=== PATIENT | male | born 1955 | race American Indian/Alaskan Native ===

== ENCOUNTER 2020-04-20 17:08 | Inpatient (IN) | payer MEDICARE ==
[2020-04-20] MEDS ORDERED: cloNIDine 0.2 MG TAB PO ONE (21:59)
--- NOTE | 2020-04-20 22:05 | Emergency Department Report ---
ED Dizziness HPI - General Chief Complaint: Dizziness Stated Complaint: CHECK UP Time Seen by Provider: 04/20/20 21:45 Source: patient, family Mode of arrival: Ambulatory Limitations: No Limitations - History of Present Illness Initial Comments: Patient is a 65-year-old male that presents emergency room with complaints of dizziness. Patient states that his dizziness is been going on for 2 days. Patient states he has not seen his primary care. Patient states he is feels lightheaded when he walks around. Patient denies fall. Patient denies near s yncope. Patient states his symptoms are better with rest. Patient states his symptoms are worsening becoming more frequent. Patient states his dizziness is intermittent. Patient states he has a history of high blood pressure but ran out of his medications 1 week ago. Patient's blood pressure in triage was 200/107. Patient denies chest pain and shortness of breath. Patient denies fall and head injury. Patient denies loss of consciousness. Patient denies recent travel. Patient denies recent international travel. Patient denies exposure to the novel coronavirus. Patient denies sick contacts. Patient denies fever and chills. Patient denies cough. Patient denies diarrhea. Patient denies coming in contact with anybody with symptoms of the novel coronavirus. Complaint: dizziness, lightheadedness -: Sudden Timing: sudden onset Description: lightheadedness History of Same: No History of Trauma: No Severity: mild Improves With: remaining still, rest Worsens With: movement, exertion Associated Symptoms: denies: ataxia, chest pain, confusion, cough, diaphoresis, fever/chills, loss of appetite, malaise, rash, seizure, shortness of breath, syncope, weakness - Related Data Allergies Allergy/AdvReac Type Severity Reaction Status Date / Time No Known Allergies Allergy Unverified 04/20/20 22:48 ED Review of Systems ROS: Stated complaint: CHECK UP Other details as noted in HPI Constitutional: denies: chills, fever Eyes: denies: eye pain, eye discharge, vision change ENT: denies: ear pain, throat pain Respiratory: denies: cough, shortness of breath, wheezing Cardiovascular: denies: chest pain, palpitations Endocrine: no symptoms reported Gastrointestinal: denies: abdominal pain, nausea, diarrhea Genitourinary: denies: urgency, dysuria Musculoskeletal: denies: back pain, joint swelling, arthralgia Skin: denies: rash, lesions Neurological: as per HPI. denies: headache, weakness, paresthesias Psychiatric: denies: anxiety, depression Hematological/Lymphatic: denies: easy bleeding, easy bruising ED Past Medical Hx - Past Medical History Previous Medical History?: Yes Hx Hypertension: Yes Hx Liver Disease: No Hx Renal Disease: No - Surgical History Past Surgical History?: No - Family History Family history: no significant - Social History Smoking Status: Never Smoker Substance Use Type: None ED Physical Exam - General Limitations: No Limitations General appearance: alert, in no apparent distress - Head Head exam: Present: atraumatic, normocephalic - Eye Eye exam: Present: normal appearance - ENT ENT exam: Present: mucous membranes moist - Neck Neck exam: Present: normal inspection - Respiratory Respiratory exam: Present: normal lung sounds bilaterally. Absent: respiratory distress - Cardiovascular Cardiovascular Exam: Present: regular rate, normal rhythm. Absent: systolic mur mur, diastolic murmur, rubs, gallop - GI/Abdominal GI/Abdominal exam: Present: soft, normal bowel sounds - Rectal Rectal exam: Present: deferred - Extremities Exam Extremities exam: Present: normal inspection, full ROM. Absent: tenderness, calf tenderness - Back Exam Back exam: Present: normal inspection - Neurological Exam Neurological exam: Present: alert, oriented X3, CN II-XII intact, normal gait. Absent: abnormal gait, motor sensory deficit - Psychiatric Psychiatric exam: Present: normal affect, normal mood - Skin Skin exam: Present: warm, dry, intact, normal color. Absent: rash ED Course Vital Signs 04/20/20 04/20/20 04/20/20 18:15 22:18 22:23 Temperature 100.1 F H 98.9 F Pulse Rate 65 83 67 Respiratory 18 18 Rate Blood Pressure 204/107 247/142 Blood Pressure 247/142 [Left] O2 Sat by Pulse 96 98 Oximetry 04/20/20 04/20/20 04/20/20 22:30 22:45 22:46 Temperature Pulse Rate Respiratory Rate Blood Pressure 232/193 224/115 224/115 Blood Pressure [Left] O2 Sat by Pulse 98 96 96 Oximetry 04/20/20 04/20/20 04/20/20 23:00 23:15 23:29 Temperature Pulse Rate 68 Respiratory Rate Blood Pressure 186/115 157/100 157/100 Blood Pressure [Left] O2 Sat by Pulse 97 96 Oximetry 04/20/20 04/20/20 04/21/20 23:30 23:45 00:00 Temperature Pulse Rate Respiratory Rate Blood Pressure 139/88 151/95 167/104 Blood Pressure [Left] O2 Sat by Pulse 97 98 98 Oximetry 04/21/20 00:15 Temperature Pulse Rate Respiratory Rate Blood Pressure 174/102 Blood Pressure [Left] O2 Sat by Pulse 96 Oximetry - Reevaluation(s) Reevaluation #1: The nurse rechecked the patient's blood pressure and it was 257 systolic. Patient will be given the ordered clonidine. Patient is on the small business director. 04/20/20 22:03 Reevaluation #2: Patient blood pressure still elevated. Patient will be given 5 mg of Norvasc. 04/20/20 23:05 Reevaluation #3: Patient's blood pressure improved. Patient current blood pressure 157/100. Norvasc 5 mg has been held. 04/20/20 23:13 Reevaluation #4: Patient's blood pressure remained stable. Patient is ambulatory without difficulty. Patient states that his symptoms have resolved. Patient states he is asymptomatic. Patient denies chest pain. Patient's lung sounds are clear. Labs are still pending. 04/20/20 23:33 Reevaluation #5: I discussed all results with patient. I discussed plan of care with patient. Patient agrees with plan of care and admission. Patient to be admitted to the hospitalist service. 04/20/20 23:57 - Consultations Consultation #1: Hospitalist consulted for admission. Hospitalist to admit patient. 04/20/20 23:57 ED Medical Decision Making - Lab Data Result diagrams: 04/20/20 22:27 04/20/20 22:27 - EKG Data -: EKG Interpreted by Me EKG shows normal: axis, intervals, QRS complexes, ST-T waves - EKG Data Interpretation: LVH, other (Atrial fibrillation) - Radiology Data Radiology results: report reviewed, image reviewed interpreted by me: Chest x-ray: Cardiomegaly noted, no pneumonia, no pneumothorax, no foreign body. CHEST 1 VIEW INDICATION: dizziness. COMPARISON: None. FINDINGS: Support devices: None. Heart: Moderate cardiomegaly. Lungs/Pleura: No acute air space or interstitial disease. Additional findings: None. IMPRESSION: Moderate cardiomegaly. - Medical Decision Making Patient is a 65-year-old male that presents emergency room with complaints of dizziness. Patient found to have a extremely elevated blood pressure. Patient has been noncompliant with his blood pressure medications. Patient is not sure which medications he is on. Patient given clonidine 0.2 mg and his blood pressure responded well. Patient has labs done and shows new onset renal failure. Patient admitted to the hospitalist service. Patient will require a n ephro consult. - Differential Diagnosis Hypertension, noncompliance, hypertensive emergency, dizziness Critical Care Time: Yes Critical care time in (mins) excluding proc time.: 35 Critical care attestation.: If time is entered above; I have spent that time in minutes in the direct care of this critically ill patient, excluding procedure time. Critical Care Time: 35 minutes ED Disposition Clinical Impression: Dizziness, Malignant hypertension, Metabolic acidosis, Hyperkalemia, Hypertensive emergency without congestive heart failure, Nephrotic syndrome Renal failure Qualifiers: Renal failure chronicity: acute Acute renal failure type: unspecified Qualified Code(s): N17.9 - Acute kidney failure, unspecified Proteinuria Qualifiers: Proteinuria type: unspecified Qualified Code(s): R80.9 - Proteinuria, unspecified Disposition: DC-09 OP ADMIT IP TO THIS HOSP Is pt being admited?: Yes Does the pt Need Aspirin: No Condition: Critical Time of Disposition: 23:56
[2020-04-20 22:51] LABS: Bilirubin,Urine NEG (Negative); Blood,Urine LG (Negative); Color,Urine Yellow (Yellow); Mucus,Urine FEW /HPF; Urobilinogen,Urine < 2.0 mg/dL (<2.0)
[2020-04-20 22:59] LABS: Protein,Urine >500 mg/dL (Negative)
[2020-04-20 23:05] LABS: Hematocrit 40.9 % (35.5-45.6); Hemoglobin 13.9 gm/dl (11.8-15.2); Mean Corpuscular HGB Conc 34 % (32-34); Mean Corpuscular Volume 86 fl (84-94); Platelet Count 154 K/mm3 (140-440); Red Blood Count 4.73 M/mm3 (3.65-5.03); Red Cell Distribution Width 14.7 % (13.2-15.2)
[2020-04-20] MEDS ORDERED: amLODIPine 5 MG TAB PO ONE (23:05)
[2020-04-20 23:14] LABS: Basophils % (Auto) 0.5 % (0.0-1.8); Lymphocytes # (Auto) 0.7 K/mm3 (1.2-5.4); Lymphocytes % (Auto) 12.7 % (13.4-35.0); Monocytes # (Auto) 0.7 K/mm3 (0.0-0.8)
[2020-04-20 23:30] LABS: Albumin 4.1 g/dL (3.9-5)
[2020-04-21] MEDS ORDERED: SODIUM CHLORIDE 0.9% 1000 ML 1,000 ML IV ONE (00:09)
--- NOTE | 2020-04-21 00:31 | XRay Report ---
CHEST 1 VIEW INDICATION: dizziness. COMPARISON: None. FINDINGS: Support devices: None. Heart: Moderate cardiomegaly. Lungs/Pleura: No acute air space or interstitial disease. Additional findings: None. IMPRESSION: Moderate cardiomegaly. Signer Name: Apolinar Mccallum MD Signed: 04/21/2020 12:27 AM Workstation Name: [id number]
[2020-04-21] MEDS ORDERED: SODIUM CHLORIDE 0.9% 1000 ML 1,000 ML ONE (01:17)
[2020-04-21] MEDS ORDERED: ONDANSETRON 4 MG/2 ML INJ IV PRN (01:54)
[2020-04-21] MEDS ORDERED: ACETAMINOPHEN 325 MG TAB PO PRN (01:54)
[2020-04-21] MEDS ORDERED: MORPHINE 2 MG/1 ML INJ IV PRN (01:54)
[2020-04-21] MEDS ORDERED: MAGNESIUM HYDROXIDE (MOM) ORAL LIQD UDC PO PRN (01:54)
[2020-04-21] MEDS ORDERED: SODIUM CHLORIDE 0.9% 1000 ML 1,000 ML IV SCH (02:00)
--- NOTE | 2020-04-21 02:08 | History and Physical Report ---
History of Present Illness Date of examination: 04/21/20 Date of admission: 04/21/20 00:46 Chief complaint: Dizziness History of present illness: Patient is a 65-year-old male with significant past medical history of hypertension presenting to the emergency room today complaining of dizziness. Dizziness is said to have been ongoing for about 2 days. He gets lightheaded whenever he walks around. Dizziness is said to be intermittent. He admits that has not been quite compliant with his medication as he ran out of his medication about a week ago. Blood pressure on arrival was in the 200s systolic and low 100s diastolic. He was given some p.o. clonidine with improvement in blood pressure. He denies any chest pain or shortness of breath, no nausea or vomiting, no abdominal pain. Patient denies denies any fever or chills, no sick contacts and no recent t ravel. He denies coming in contact with anyone with COVID-19. Past History Past Medical History: hypertension Past Surgical History: No surgical history Social history: no significant social history Family history: no significant family history Medications and Allergies Allergies Allergy/AdvReac Type Severity Reaction Status Date / Time No Known Allergies Allergy Unverified 04/20/20 22:48 Active Meds: Active Medications Acetaminophen (Tylenol) 650 mg PO Q4H PRN PRN Reason: Pain MILD(1-3)/Fever >100.5/NUNO Heparin Sodium (Porcine) (Heparin) 5,000 unit SUB-Q Q8HR JEAN MARIE Sodium Chloride (Nacl 0.9% 1000 Ml) 1,000 mls @ 75 mls/hr IV DIRECT JEAN MARIE Magnesium Hydroxide (Milk Of Magnesia) 30 ml PO Q4H PRN PRN Reason: Constipation Morphine Sulfate (Morphine) 2 mg IV Q4H PRN PRN Reason: Pain, Moderate (4-6) Ondansetron HCl (Zofran) 4 mg IV Q8H PRN PRN Reason: Nausea And Vomiting Sodium Chloride (Sodium Chloride Flush Syringe 10 Ml) 10 ml IV BID JEAN MARIE Sodium Chloride (Sodium Chloride Flush Syringe 10 Ml) 10 ml IV PRN PRN PRN Reason: LINE FLUSH Review of Systems Constitutional: no fever, no chills Ears, nose, mouth and throat: no nasal congestion, no sore throat Cardiovascular: no chest pain, no palpitations Respiratory: no cough, no shortness of breath Gastrointestinal: no abdominal pain, no nausea, no vomiting, no diarrhea Genitourinary Male: no dysuria, no hematuria, no nocturia Musculoskeletal: no neck stiffness, no low back pain Integumentary: no rash, no pruritis Neurological: no headaches, no confusion Psychiatric: no anxiety, no depression Exam - Constitutional Vitals: Temp Pulse Resp BP Pulse Ox 98.9 F 68 18 174/102 96 04/20/20 22:18 04/20/20 23:29 04/20/20 22:18 04/21/20 00:15 04/21/20 00:15 General appearance: Present: no acute distress, well-nourished - EENT Eyes: Present: PERRL, EOM intact. Absent: scleral icterus ENT: hearing intact, clear oral mucosa, dentition normal - Neck Neck: Present: supple, normal ROM - Respiratory Respiratory effort: normal Respiratory: bilateral: CTA - Cardiovascular Rhythm: regular Heart Sounds: Present: S1 & S2. Absent: gallop, systolic murmur, diastolic murmur, rub - Extremities Extremities: no ischemia, pulses intact, pulses symmetrical, No edema, Full ROM Peripheral Pulses: within normal limits - Abdominal General gastrointestinal: Present: soft, non-tender, normal bowel sounds. Absent: mass - Integumentary Integumentary: Present: clear, warm, dry. Absent: rash - Musculoskeletal Musculoskeletal: strength equal bilaterally - Psychiatric Psychiatric: appropriate mood/affect, intact judgment & insight, memory intact, cooperative - Neurologic Neurologic: CNII-XII intact, no focal deficits, moves all extremities Results - Labs CBC & Chem 7: 04/20/20 22:27 04/20/20 22:27 Labs: Abnormal lab results 04/20/20 04/20/20 Range/Units 22:27 22:27 Lymph % (Auto) 12.7 L (13.4-35.0) % [place] % (Auto) 13.0 H (0.0-7.3) % Lymph # 0.7 L (1.2-5.4) K/mm3 Seg Neutrophils % 73.8 H (40.0-70.0) % Sodium 133 L (137-145) mmol/L Potassium 5.1 H (3.6-5.0) mmol/L Chloride 95.0 L (98-107) mmol/L Carbon Dioxide 14 L (22-30) mmol/L BUN 75 H (9-20) mg/dL Creatinine 5.0 H (0.8-1.3) mg/dL AST 82 H (5-40) units/L ALT 59 H (7-56) units/L Total Protein 8.8 H (6.3-8.2) g/dL Assessment and Plan - Patient Problems (1) Dizziness Current Visit: Yes Status: Acute Plan to address problem: Resolved. Possibly secondary to the elevated blood pressure. (2) Malignant hypertension Current Visit: Yes Status: Acute Plan to address problem: Secondary to noncompliance. We will resume routine home medications and monitor vital signs closely. (3) Renal failure Current Visit: Yes Status: Acute Qualifiers: Renal failure chronicity: acute Acute renal failure type: unspecified Qualified Code(s): N17.9 - Acute kidney failure, unspecified Plan to address problem: Possibly secondary to longstanding hypertension versus volume depletion. Patient given some IV fluid in the emergency room. Will place consult to nephrology for evaluation and recommendation. (4) DVT prophylaxis Current Visit: Yes Status: Acute Plan to address problem: Patient placed on subcutaneous heparin. (5) Full code status Current Visit: Yes Status: Acute
[2020-04-21] MEDS ORDERED: cloNIDine 0.1 MG TAB PO ONE (02:18)
[2020-04-21] MEDS ORDERED: cloNIDine 0.1 MG TAB ONE (02:30)
[2020-04-21] MEDS: HEPARIN 5,000 UNIT/1 ML VIAL SUB-Q SCH ×3 (06:35→21:39)
[2020-04-21 07:16] LABS: Alanine Aminotransferase 50 units/L (7-56); Albumin 3.6 g/dL (3.9-5)
[2020-04-21 08:11] LABS: Bilirubin,Direct < 0.2 mg/dL (0-0.2)
[2020-04-21] MEDS: NIFEdipine XL 60 MG TAB PO SCH ×2 (10:34→21:39)
--- NOTE | 2020-04-21 11:21 | Progress Note ---
Assessment and Plan Assessment and plan: Dizziness Current Visit: Yes Status: Acute Plan to address problem: Resolved. Possibly secondary to the elevated blood pressure. Malignant hypertension Start Procardia 60 mg twice daily Acute on chronic renal failure Possibly secondary to longstanding hypertension versus volume depletion. Patient given some IV fluid in the emergency room. Will place consult to nephrology for evaluation and recommendation. Check renal ultrasound DVT prophylaxis Patient placed on subcutaneous heparin. Full code status History Interval history: Patient denies any chest pain or shortness of breath. Patient states his dizziness has resolved. Hospitalist Physical - Constitutional Vitals: Temp Pulse Resp BP Pulse Ox 98.1 F 77 20 156/103 97 04/21/20 03:15 04/21/20 10:28 04/21/20 03:15 04/21/20 03:15 04/21/20 03:15 General appearance: Present: no acute distress, well-nourished - EENT Eyes: Present: PERRL, EOM intact ENT: hearing intact, clear oral mucosa, dentition normal - Neck Neck: Present: supple, normal ROM - Respiratory Respiratory effort: normal Respiratory: bilateral: CTA - Cardiovascular Rhythm: regular Heart Sounds: Present: S1 & S2. Absent: gallop, rub - Extremities Extremities: no ischemia, No edema, Full ROM - Abdominal General gastrointestinal: soft, non-tender, non-distended, normal bowel sounds - Integumentary Integumentary: Present: clear, warm, dry - Neurologic Neurologic: CNII-XII intact, moves all extremities Results - Labs CBC & Chem 7: 04/20/20 22:27 04/20/20 22:27 Labs: Laboratory Last Values WBC 5.5 K/mm3 (4.5-11.0) 04/20/20 22:27 RBC 4.73 M/mm3 (3.65-5.03) 04/20/20 22:27 Hgb 13.9 gm/dl (11.8-15.2) 04/20/20 22: Hct 40.9 % (35.5-45.6) 04/20/20 22:27 MCV 86 fl (84-94) 04/20/20 22:27 MCH 29 pg (28-32) 04/20/20 22: MCHC 34 % (32-34) 04/20/20 22: RDW 14.7 % (13.2-15.2) 04/20/20 22: Plt Count 154 K/mm3 (140-440) 04/20/20 22: Lymph % (Auto) 12.7 % (13.4-35.0) L 04/20/20 22:27 Kay % (Auto) 13.0 % (0.0-7.3) H 04/20/20 22: Eos % (Auto) 0.0 % (0.0-4.3) 04/20/20: Baso % (Auto) 0.5 % (0.0-1.8) 04/20/20: Lymph # 0.7 K/mm3 (1.2-5.4) L 04/20/20 22: Kay # 0.7 K/mm3 (0.0-0.8) 04/20/20 22: Eos # 0.0 K/mm3 (0.0-0.4) 04/20/20: Baso # 0.0 K/mm3 (0.0-0.1) 04/20/20 22: Seg Neutrophils % 73.8 % (40.0-70.0) H 04/20/20 22: Seg Neutrophils # 4.0 K/mm3 (1.8-7.7) 04/20/20 22: Sodium 133 mmol/L (137-145) L 04/20/20 22: Potassium 5.1 mmol/L (3.6-5.0) H 04/20/20 22: Chloride 95.0 mmol/L (98-107) L 04/20/20: Carbon Dioxide 14 mmol/L (22-30) L 04/20/20 22: Anion Gap 29 mmol/L 04/20/20 22: BUN 75 mg/dL (9-20) H 04/20/20: Creatinine 5.0 mg/dL (0.8-1.3) H 04/20/20: Estimated GFR 14 ml/min 04/20/20: BUN/Creatinine Ratio 15 % 04/20/20: Glucose 99 mg/dL (75-100) 04/20/20: Calcium 10.0 mg/dL (8.4-10.2) 09/03/20 22:27 Total Bilirubin 0.50 mg/dL (0.1-1.2) 04/21/20 05:01 Direct Bilirubin < 0.2 mg/dL (0-0.2) 04/21/20 05:01 AST 68 units/L (5-40) H 04/21/20 05:01 ALT 50 units/L (7-56) 04/21/20 05:01 Alkaline Phosphatase 46 units/L (35-129) 04/21/20 05:01 Total Protein 7.2 g/dL (6.3-8.2) 04/21/20 05:01 Albumin 3.6 g/dL (3.9-5) L 04/21/20 05:01 Albumin/Globulin Ratio 1.0 % 04/21/20 05:01 Urine Color Yellow (Yellow) 04/20/20 Unknown Urine Turbidity Slightly-cloudy (Clear) 04/20/20 Unknown Urine pH 5.0 (5.0-7.0) 04/20/20 Unknown Ur Specific [place] 1.014 (1.003-1.030) 04/20/20 Unknown Urine Protein >500 mg/dL (Negative) 04/20/20 Unknown Urine Glucose (UA) Neg mg/dL (Negative) 04/20/20 Unknown Urine Ketones Neg mg/dL (Negative) 04/20/20 Unknown Urine Blood Lg (Negative) 04/20/20 Unknown Urine Nitrite Neg (Negative) 04/20/20 Unknown Urine Bilirubin Neg (Negative) 04/20/20 Unknown Urine Urobilinogen < 2.0 mg/dL (<2.0) 04/20/20 Unknown Ur Leukocyte Esterase Neg (Negative) 04/20/20 Unknown Urine WBC (Auto) 2.0 /HPF (0.0-6.0) 04/20/20 Unknown Urine RBC (Auto) 2.0 /HPF (0.0-6.0) 04/20/20 Unknown U Epithel Cells (Auto) < 1.0 /HPF (0-13.0) 04/20/20 Unknown Urine Mucus Few /HPF 04/20/20 Unknown Urine Yeast (Budding) 1+ /HPF 04/20/20 Unknown [place]/IV: Voiding Method Toilet IV Catheter Type [Right Hand] INT / Saline Lock Active Medications - Current Medications Current Medications: Generic Name Dose Route Start Last Admin Trade Name Freq PRN Reason Stop Dose Admin Acetaminophen 650 mg 04/21/20 01:54 Tylenol PO Q4H PRN Pain MILD(1-3)/Fever >100.5/NUNO Guaifenesin 10 ml 04/21/20 03:25 Guaifenesin Dm Syrup PO Q6H PRN Cough Heparin Sodium (Porcine) 5,000 unit 04/21/20 06:00 04/21/20 06:35 Heparin SUB-Q 5,000 unit Q8HR JEAN MARIE Administration Magnesium Hydroxide 30 ml 04/21/20 01:54 Milk Of Magnesia PO Q4H PRN Constipation Morphine Sulfate 2 mg 04/21/20 01:54 Morphine IV Q4H PRN Pain, Moderate (4-6) Nifedipine 60 mg 04/21/20 10:00 04/21/20 10:34 Procardia Xl PO 60 mg Q12HR JEAN MARIE Administration Ondansetron HCl 4 mg 04/21/20 01:54 Zofran IV Q8H PRN Nausea And Vomiting Sodium Chloride 10 ml 04/21/20 10:00 04/21/20 09:48 Sodium Chloride Flush Syringe 10 Ml IV 10 ml BID JEAN MARIE Administration Sodium Chloride 10 ml 04/21/20 01:54 Sodium Chloride Flush Syringe 10 Ml IV PRN PRN LINE FLUSH
--- NOTE | 2020-04-21 11:46 | Consultation ---
History of Present Illness - Reason for Consult Consult date: 04/21/20 acute renal failure Requesting physician: PATSY VYAS - History of Present Illness Patient is a 65-year-old male that presents emergency room with complaints of dizziness. Patient states that his dizziness is been going on for 2 days. Patient states he has not seen his primary care. Patient states he is feels lightheaded when he walks around. Patient denies fall. Patient denies near s yncope. Patient states his symptoms are better with rest. Patient states his symptoms are worsening becoming more frequent. Patient states his dizziness is intermittent. Patient states he has a history of high blood pressure but ran out of his medications 1 week ago. Patient's blood pressure in triage was 200/107. Patient denies chest pain and shortness of breath. Patient denies fall and head injury. Patient denies loss of consciousness. Patient denies recent travel. Patient denies recent international travel. Patient denies exposure to the novel coronavirus. Patient denies sick contacts. Patient denies fever and chills. Patient denies cough. Patient denies diarrhea. Patient denies coming in contact with anybody with symptoms of the novel coronavirus. Patient denies any previous knowledge of renal dysfunction. Patient states that he used to follow-up with Dr. Colon as an outpatient. However last time he had seen him was several years ago. He had lost his insurance in the interim and Dr. Colon did not take his new insurance. 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 He does admit to ta jerald some nonsteroidals but intake does not seem to be significant. No history of gross hematuria or frequent urinary tract infection Past History Past Medical History: hypertension Past Surgical History: No surgical history Social history: no significant social history Family history: no significant family history Medications and Allergies Allergies Allergy/AdvReac Type Severity Reaction Status Date / Time No Known Allergies Allergy Unverified 04/20/20 22:48 Active Meds: Active Medications Acetaminophen (Tylenol) 650 mg PO Q4H PRN PRN Reason: Pain MILD(1-3)/Fever >100.5/NUNO Guaifenesin (Guaifenesin Dm Syrup) 10 ml PO Q6H PRN PRN Reason: Cough Heparin Sodium (Porcine) (Heparin) 5,000 unit SUB-Q Q8HR [facility] Last Admin: 04/21/20 06:35 Dose: 5,000 unit Documented by: Magnesium Hydroxide (Milk Of Magnesia) 30 ml PO Q4H PRN PRN Reason: Constipation Morphine Sulfate (Morphine) 2 mg IV Q4H PRN PRN Reason: Pain, Moderate (4-6) Nifedipine (Procardia Xl) 60 mg PO Q12HR [facility] Last Admin: 04/21/20 10:34 Dose: 60 mg Documented by: Ondansetron HCl (Zofran) 4 mg IV Q8H PRN PRN Reason: Nausea And Vomiting Sodium Chloride (Sodium Chloride Flush Syringe 10 Ml) 10 ml IV BID [facility] Last Admin: 04/21/20 09:48 Dose: 10 ml Documented by: Sodium Chloride (Sodium Chloride Flush Syringe 10 Ml) 10 ml IV PRN PRN PRN Reason: LINE FLUSH Review of Systems All systems: negative (Negative except as noted above) Exam - Vital Signs Vital signs: Vital Signs Temp Pulse Resp BP Pulse Ox 100.1 F H 65 18 204/107 96 04/20/20 18:15 04/20/20 18:15 04/20/20 18:15 04/20/20 18:15 04/20/20 18:15 - General Appearance General appearance: well-developed, well-nourished, appears stated age EENT: PERRL, mucous membranes moist Neck: Present: neck supple, trachea midline. Absent: JVD/HJR, Masses Respiratory: Clear to Ascultation Heart: regular, normal heart rate, S1S2, no murmurs Gastrointestinal: Present: normal. Absent: tenderness, distended, masses, guarding Integumentary: no rash, warm and dry Neurologic: no focal deficit Results - Lab Results 04/20/20 22:27 04/20/20 22:27 Most recent lab results Calcium 10.0 mg/dL (8.4-10.2) 04/20/20 22:27 Assessment and Plan Impression * Renal failure. Most likely acute on chronic * Uncontrolled hypertension * Metabolic acidosis Recommendations * Etiology of his renal dysfunction unclear. His baseline renal function is also not known. * Suspect some degree of underlying chronic kidney disease * Check a UA as well as a fractional excretion of sodium * Check renal ultrasound to assess kidney size and echogenicity * Check vasculitis work-up * Add bicarbonate to the IV fluid * Avoid nephrotoxins * Monitor fluid status and electrolytes closely. Patient is currently nonoliguric * No urgent indication for hemodialysis at this time * Thank you very much for the consultation. Shall follow along with you
[2020-04-21] MEDS ORDERED: SODIUM CHLORIDE 0.45% 1000 ML 1,000 ML with SODIUM BICARBONATE 75 MEQ IV SCH (12:00)
[2020-04-21 15:10] LABS: Hepatitis B Surface Antigen Non-Reactive (Negative); Hepatitis C Virus Antibody Non-Reactive (NonReactive)
[2020-04-21] MEDS: guaiFENesin DM 200/20 MG ORAL LIQD 10 ML PO PRN (21:39)
[2020-04-21 22:31] LABS: Bilirubin,Urine NEG (Negative); Blood,Urine MOD (Negative); Color,Urine Yellow (Yellow); Urobilinogen,Urine < 2.0 mg/dL (<2.0)
[2020-04-21 22:34] LABS: Fractional Sodium Excretion 0.2
[2020-04-22] MEDS: SODIUM BICARBONATE 75 MEQ in SODIUM CHLORIDE 0.45% 1000 ML 1,000 ML IV SCH ×2 (03:40→19:15)
[2020-04-22] MEDS: HEPARIN 5,000 UNIT/1 ML VIAL SUB-Q SCH ×3 (05:52→23:02)
[2020-04-22 06:20] LABS: Basophils % (Auto) 0.3 % (0.0-1.8); Eosinophils % (Auto) 0.1 % (0.0-4.3); Hematocrit 33.9 % (35.5-45.6); Hemoglobin 11.7 gm/dl (11.8-15.2); Lymphocytes # (Auto) 0.5 K/mm3 (1.2-5.4); Lymphocytes % (Auto) 11.4 % (13.4-35.0); Mean Corpuscular HGB Conc 35 % (32-34); Mean Corpuscular Volume 84 fl (84-94); Monocytes # (Auto) 0.5 K/mm3 (0.0-0.8); Platelet Count 161 K/mm3 (140-440); Red Blood Count 4.01 M/mm3 (3.65-5.03); Red Cell Distribution Width 14.8 % (13.2-15.2)
[2020-04-22 06:31] LABS: INR 1.16 (0.87-1.13)
[2020-04-22 06:34] LABS: Calcium 9.3 mg/dL (8.4-10.2)
[2020-04-22] MEDS: NIFEdipine XL 60 MG TAB PO SCH ×2 (09:54→23:03)
--- NOTE | 2020-04-22 09:55 | Progress Note ---
Assessment and Plan Assessment and plan: Dizziness Resolved. Possibly secondary to the elevated blood pressure. Malignant hypertension Start Procardia 60 mg twice daily Acute on chronic renal failure Possibly secondary to longstanding hypertension versus volume depletion. Patient given some IV fluid in the emergency room. Will place consult to nephrology for evaluation and recommendation. Check renal ultrasound DVT prophylaxis Patient placed on subcutaneous heparin. Full code status 04/22/2020. Baseline renal function is not known. Patient likely has some degree of underlying chronic kidney disease. Follow-up renal ultrasound and vasculitis work-up. Continue to avoid nephrotoxins. Monitor fluid status and electrolytes closely. Blood pressure much better controlled with the addition of Procardia twice daily. History Interval history: Patient denies any chest pain or shortness of breath. Patient states his dizziness has resolved. Hospitalist Physical - Constitutional Vitals: Temp Pulse Resp BP Pulse Ox 98.6 F 75 18 125/75 96 04/22/20 08:17 04/22/20 08:16 04/22/20 08:17 04/22/20 08:16 04/22/20 08:16 General appearance: Present: no acute distress, well-nourished - EENT Eyes: Present: PERRL, EOM intact ENT: hearing intact, clear oral mucosa, dentition normal - Neck Neck: Present: supple, normal ROM - Respiratory Respiratory effort: normal Respiratory: bilateral: CTA - Cardiovascular Rhythm: regular Heart Sounds: Present: S1 & S2. Absent: gallop, rub - Extremities Extremities: no ischemia, No edema, Full ROM - Abdominal General gastrointestinal: soft, non-tender, non-distended, normal bowel sounds - Integumentary Integumentary: Present: clear, warm, dry - Neurologic Neurologic: CNII-XII intact, moves all extremities Results - Labs CBC & Chem 7: 04/22/20 04:49 04/22/20 04:49 Labs: Laboratory Last Values WBC 4.3 K/mm3 (4.5-11.0) L 04/22/20 04:49 RBC 4.01 M/mm3 (3.65-5.03) 04/22/20 04:49 Hgb 11.7 gm/dl (11.8-15.2) L 04/22/20 04:49 Hct 33.9 % (35.5-45.6) L D 04/22/20 04:49 MCV 84 fl (84-94) 04/22/20 04:49 MCH 29 pg (28-32) 04/22/20 04:49 MCHC 35 % (32-34) H 04/22/20 04:49 RDW 14.8 % (13.2-15.2) 04/22/20 04:49 Plt Count 161 K/mm3 (140-440) 04/22/20 04:49 Lymph % (Auto) 11.4 % (13.4-35.0) L 04/22/20 04:49 [place] % (Auto) 12.0 % (0.0-7.3) H 04/22/20 04:49 Eos % (Auto) 0.1 % (0.0-4.3) 04/22/20 04:49 Baso % (Auto) 0.3 % (0.0-1.8) 04/22/20 04:49 Lymph # 0.5 K/mm3 (1.2-5.4) L 04/22/20 04:49 [place] # 0.5 K/mm3 (0.0-0.8) 04/22/20 04:49 Eos # 0.0 K/mm3 (0.0-0.4) 04/22/20 04:49 Baso # 0.0 K/mm3 (0.0-0.1) 04/22/20 04:49 Seg Neutrophils % 76.2 % (40.0-70.0) H 04/22/20 04:49 Seg Neutrophils # 3.3 K/mm3 (1.8-7.7) 04/22/20 04:49 PT 15.1 Sec. (12.2-14.9) H 04/22/20 04:49 INR 1.16 (0.87-1.13) H 04/22/20 04:49 Sodium 133 mmol/L (137-145) L 04/22/20 04:49 Potassium 3.8 mmol/L (3.6-5.0) D 04/22/20 04:49 Chloride 96.5 mmol/L (98-107) L 04/22/20 04:49 Carbon Dioxide 19 mmol/L (22-30) L 04/22/20 04:49 Anion Gap 21 mmol/L 04/22/20 04:49 BUN 80 mg/dL (9-20) H 04/22/20 04:49 Creatinine 4.8 mg/dL (0.8-1.3) H 04/22/20 04:49 Estimated GFR 15 ml/min 04/22/20 04:49 BUN/Creatinine Ratio 17 % 04/22/20 04:49 Glucose 130 mg/dL (75-100) H 04/22/20 04:49 POC Glucose 135 (70-105) H 04/22/20 03:46 Calcium 9.3 mg/dL (8.4-10.2) 04/22/20 04:49 Total Bilirubin 0.50 mg/dL (0.1-1.2) 04/21/20 05:01 Direct Bilirubin < 0.2 mg/dL (0-0.2) 04/21/20 05:01 AST 68 units/L (5-40) H 04/21/20 05:01 ALT 50 units/L (7-56) 04/21/20 05:01 Alkaline Phosphatase 46 units/L (35-129) 04/21/20 05:01 Total Protein 7.2 g/dL (6.3-8.2) 04/21/20 05:01 Albumin 3.6 g/dL (3.9-5) L 04/21/20 05:01 Albumin/Globulin Ratio 1.0 % 04/21/20 05:01 Urine Color Yellow (Yellow) 04/21/20 21:35 Urine Turbidity Clear (Clear) 04/21/20 21:35 Urine pH 5.0 (5.0-7.0) 04/21/20 21:35 Ur Specific [place] 1.013 (1.003-1.030) 04/21/20 21:35 Urine Protein 100 mg/dl mg/dL (Negative) 04/21/20 21:35 Urine Glucose (UA) Neg mg/dL (Negative) 04/21/20 21:35 Urine Ketones Neg mg/dL (Negative) 04/21/20 21:35 Urine Blood Mod (Negative) 04/21/20 21:35 Urine Nitrite Neg (Negative) 04/21/20 21:35 Urine Bilirubin Neg (Negative) 04/21/20 21:35 Urine Urobilinogen < 2.0 mg/dL (<2.0) 04/21/20 21:35 Ur Leukocyte Esterase Neg (Negative) 04/21/20 21:35 Urine WBC (Auto) 1.0 /HPF (0.0-6.0) 04/21/20 21:35 Urine RBC (Auto) 2.0 /HPF (0.0-6.0) 04/21/20 21:35 U Epithel Cells (Auto) < 1.0 /HPF (0-13.0) 04/21/20 21:35 Urine Mucus Few /HPF 04/20/20 Unknown Urine Yeast (Budding) 1+ /HPF 04/20/20 Unknown Urine Eosinophils None seen (None Seen) 04/21/20 21:35 Urine Creatinine 146.0 mg/dL (0.1-20.0) H 04/21/20 21:35 Urine Sodium 11 mmol/L 04/21/20 21:35 Fraction Sodium Excret 0.2 04/21/20 21:35 Hepatitis A IgM Ab Non-reactive (NonReactive) 04/21/20 14:04 Hep Bs Antigen Non-reactive (Negative) 04/21/20 14:04 Hep B Core IgM Ab Non-reactive (NonReactive) 04/21/20 14:04 Hepatitis C Antibody Non-reactive (NonReactive) 04/21/20 14:04 [place]/IV: Voiding Method Toilet IV Catheter Type [Right Hand] INT / Saline Lock Active Medications - Current Medications Current Medications: Generic Name Dose Route Start Last Admin Trade Name Freq PRN Reason Stop Dose Admin Acetaminophen 650 mg 04/21/20 01:54 Tylenol PO Q4H PRN Pain MILD(1-3)/Fever >100.5/NUNO Guaifenesin 10 ml 04/21/20 03:25 04/21/20 21:39 Guaifenesin Dm Syrup PO 10 ml Q6H PRN Administration Cough Heparin Sodium (Porcine) 5,000 unit 04/21/20 06:00 04/22/20 05:52 Heparin SUB-Q 5,000 unit Q8HR JEAN MARIE Administration Sodium Bicarbonate 75 meq/ 1,075 mls @ 75 mls/hr 04/22/20 03:00 04/22/20 03:40 Sodium Chloride IV 75 mls/hr DIRECT JEAN MARIE Administration Magnesium Hydroxide 30 ml 04/21/20 01:54 Milk Of Magnesia PO Q4H PRN Constipation Morphine Sulfate 2 mg 04/21/20 01:54 Morphine IV Q4H PRN Pain, Moderate (4-6) Nifedipine 60 mg 04/21/20 10:00 04/21/20 21:39 Procardia Xl PO 60 mg Q12HR JEAN MAREI Administration Ondansetron HCl 4 mg 04/21/20 01:54 Zofran IV Q8H PRN Nausea And Vomiting Sodium Chloride 10 ml 04/21/20 10:00 04/21/20 21:40 Sodium Chloride Flush Syringe 10 Ml IV 10 ml BID JEAN MARIE Administration Sodium Chloride 10 ml 04/21/20 01:54 Sodium Chloride Flush Syringe 10 Ml IV PRN PRN LINE FLUSH
--- NOTE | 2020-04-22 11:46 | Progress Note ---
Assessment and Plan Impression * Renal failure. Most likely acute on chronic * Uncontrolled hypertension * Metabolic acidosis Recommendations * Etiology of his renal dysfunction unclear. His baseline renal function is also not known. * Suspect some degree of underlying chronic kidney disease * Urine studies seems to be consistent with a prerenal state. His urine does show 2+ dipstick protein. Check urine protein creatinine ratio. * Awaiting renal ultrasound * Follow-up results of vasculitis work-up * Continue IV fluids with sodium bicarbonate * Avoid nephrotoxins * Monitor fluid status and electrolytes closely. Patient is currently nonoliguric * No urgent indication for hemodialysis at this time Subjective Date of service: 04/22/20 Interval history: Patient is comfortable today. Denies any nausea or vomiting. Urinating well. Objective - Vital Signs Vital signs: Vital Signs - 12hr 04/22/20 04/22/20 04/22/20 02:00 03:32 04:38 Temperature 97.6 F Pulse Rate 73 72 Respiratory 20 Rate Blood Pressure 111/56 121/70 O2 Sat by Pulse 96 Oximetry 04/22/20 04/22/20 08:16 08:17 Temperature 98.6 F 98.6 F Pulse Rate 75 Respiratory 18 18 Rate Blood Pressure 125/75 O2 Sat by Pulse 96 Oximetry - General Appearance General appearance: well-developed, well-nourished, appears stated age EENT: PERRL, mucous membranes moist Neck: no JVD, no thyromegaly, no carotid bruit, supple Respiratory: Present: Clear to Ascultation Cardiology: regular, normal heart rate Gastrointestinal: normal, normoactive bowel sounds Integumentary: no rash, other (No edema) - Lab 04/22/20 04:49 04/22/20 04:49 Most recent lab results Calcium 9.3 mg/dL (8.4-10.2) 04/22/20 04:49 Urine Creatinine 146.0 mg/dL (0.1-20.0) H 04/21/20 21:35 Urine Sodium 11 mmol/L 04/21/20 21:35 Medications & Allergies - Medications Allergies/Adverse Reactions: Allergies No Known Allergies Allergy (Unverified 04/20/20 22:48) Home Medications: Home Medications Medication Instructions Recorded Confirmed Last Taken Type No Known Home Medications [No 04/21/20 04/21/20 Unknown History Reported Home Medications] Active Medications: Generic Name Dose Route Start Last Admin Trade Name [place] PRN Reason Stop Dose Admin Acetaminophen 650 mg 04/21/20 01:54 Tylenol PO Q4H PRN Pain MILD(1-3)/Fever >100.5/NUNO Guaifenesin 10 ml 04/21/20 03:25 04/21/20 21:39 Guaifenesin Dm Syrup PO 10 ml Q6H PRN Administration Cough Heparin Sodium (Porcine) 5,000 unit 04/21/20 06:00 04/22/20 05:52 Heparin SUB-Q 5,000 unit Q8HR JEAN MARIE Administration Sodium Bicarbonate 75 meq/ 1,075 mls @ 75 mls/hr 04/22/20 03:00 04/22/20 03:40 Sodium Chloride IV 75 mls/hr DIRECT JEAN MARIE Administration Magnesium Hydroxide 30 ml 04/21/20 01:54 Milk Of Magnesia PO Q4H PRN Constipation Morphine Sulfate 2 mg 04/21/20 01:54 Morphine IV Q4H PRN Pain, Moderate (4-6) Nifedipine 60 mg 04/21/20 10:00 04/22/20 09:54 Procardia Xl PO 60 mg Q12HR JEAN MARIE Administration Ondansetron HCl 4 mg 04/21/20 01:54 Zofran IV Q8H PRN Nausea And Vomiting Sodium Chloride 10 ml 04/21/20 10:00 04/22/20 09:55 Sodium Chloride Flush Syringe 10 Ml IV 10 ml BID JEAN MARIE Administration Sodium Chloride 10 ml 04/21/20 01:54 Sodium Chloride Flush Syringe 10 Ml IV PRN PRN LINE FLUSH
--- NOTE | 2020-04-22 18:05 | Ultrasound Report ---
ULTRASOUND RENAL INDICATION / CLINICAL INFORMATION: ARF. COMPARISON: None available. FINDINGS: RIGHT KIDNEY: Length = 7.7 cm. - Echogenicity: Normal. - Cortical Thickness: Renal cortical thinning, measuring 0.9 cm in thickness. - Hydronephrosis: None. - Cyst or mass: No significant abnormality. - Stones: None seen. LEFT KIDNEY: Length = 7.6 cm. - Echogenicity: Normal. - Cortical Thickness: Renal cortical thinning, measuring 0.7 cm in thickness. - Hydronephrosis: None. - Cyst or mass: No significant abnormality. - Stones: None seen. URINARY BLADDER: No significant abnormality. FREE FLUID: None. ADDITIONAL FINDINGS: None. IMPRESSION: 1. Mild bilateral renal cortical thinning. No additional sonographic abnormality. Signer Name: Ger Singh MD Signed: 04/22/2020 6:01 PM Workstation Name: [id number]
[2020-04-23] MEDS: guaiFENesin DM 200/20 MG ORAL LIQD 10 ML PO PRN (00:07)
[2020-04-23] MEDS: HEPARIN 5,000 UNIT/1 ML VIAL SUB-Q SCH ×3 (05:48→21:49)
[2020-04-23 06:10] LABS: Calcium 9.3 mg/dL (8.4-10.2)
--- NOTE | 2020-04-23 09:37 | Progress Note ---
Assessment and Plan Assessment and plan: Dizziness Resolved. Possibly secondary to the elevated blood pressure. Malignant hypertension Start Procardia 60 mg twice daily Acute on chronic renal failure Possibly secondary to longstanding hypertension versus volume depletion. Patient given some IV fluid in the emergency room. Will place consult to nephrology for evaluation and recommendation. Check renal ultrasound DVT prophylaxis Patient placed on subcutaneous heparin. Full code status 04/22/2020. Baseline renal function is not known. Patient likely has some degree of underlying chronic kidney disease. Follow-up renal ultrasound and vasculitis work-up. Continue to avoid nephrotoxins. Monitor fluid status and electrolytes closely. Blood pressure much better controlled with the addition of Procardia twice daily. 04/23/2020. Creatinine with some improvement to 3.8. Urine studies seems to be consistent with a prerenal state. His urine does show 2+ dipstick protein. Check urine protein creatinine ratio. Await renal ultrasound. Blood pressure with adequate control. History Interval history: Patient denies any chest pain or shortness of breath. Patient states his dizziness has resolved. Hospitalist Physical - Constitutional Vitals: Temp Pulse Resp BP Pulse Ox 97.9 F 76 18 144/77 96 04/23/20 07:58 04/23/20 07:58 04/23/20 07:58 04/23/20 07:58 04/23/20 07:58 General appearance: Present: no acute distress, well-nourished - EENT Eyes: Present: PERRL, EOM intact ENT: hearing intact, clear oral mucosa, dentition normal - Neck Neck: Present: supple, normal ROM - Respiratory Respiratory effort: normal Respiratory: bilateral: CTA - Cardiovascular Rhythm: regular Heart Sounds: Present: S1 & S2. Absent: gallop, rub - Extremities Extremities: no ischemia, No edema, Full ROM - Abdominal General gastrointestinal: soft, non-tender, non-distended, normal bowel sounds - Integumentary Integumentary: Present: clear, warm, dry - Neurologic Neurologic: CNII-XII intact, moves all extremities Results - Labs CBC & Chem 7: 04/22/20 04:49 04/23/20 04:15 Labs: Laboratory Last Values WBC 4.3 K/mm3 (4.5-11.0) L 04/22/20 04:49 RBC 4.01 M/mm3 (3.65-5.03) 04/22/20 04:49 Hgb 11.7 gm/dl (11.8-15.2) L 04/22/20 04:49 Hct 33.9 % (35.5-45.6) L D 04/22/20 04:49 MCV 84 fl (84-94) 04/22/20 04:49 MCH 29 pg (28-32) 04/22/20 04:49 MCHC 35 % (32-34) H 04/22/20 04:49 RDW 14.8 % (13.2-15.2) 04/22/20 04:49 Plt Count 161 K/mm3 (140-440) 04/22/20 04:49 Lymph % (Auto) 11.4 % (13.4-35.0) L 04/22/20 04:49 [place] % (Auto) 12.0 % (0.0-7.3) H 04/22/20 04:49 Eos % (Auto) 0.1 % (0.0-4.3) 04/22/20 04:49 Baso % (Auto) 0.3 % (0.0-1.8) 04/22/20 04:49 Lymph # 0.5 K/mm3 (1.2-5.4) L 04/22/20 04:49 [place] # 0.5 K/mm3 (0.0-0.8) 04/22/20 04:49 Eos # 0.0 K/mm3 (0.0-0.4) 04/22/20 04:49 Baso # 0.0 K/mm3 (0.0-0.1) 04/22/20 04:49 Seg Neutrophils % 76.2 % (40.0-70.0) H 04/22/20 04:49 Seg Neutrophils # 3.3 K/mm3 (1.8-7.7) 04/22/20 04:49 PT 15.1 Sec. (12.2-14.9) H 04/22/20 04:49 INR 1.16 (0.87-1.13) H 04/22/20 04:49 Sodium 140 mmol/L (137-145) D 04/23/20 04:15 Potassium 3.8 mmol/L (3.6-5.0) 04/23/20 04:15 Chloride 99.2 mmol/L (98-107) 04/23/20 04:15 Carbon Dioxide 22 mmol/L (22-30) 04/23/20 04:15 Anion Gap 23 mmol/L 04/23/20 04:15 BUN 69 mg/dL (9-20) H 04/23/20 04:15 Creatinine 3.8 mg/dL (0.8-1.3) H 04/23/20 04:15 Estimated GFR 19 ml/min 04/23/20 04:15 BUN/Creatinine Ratio 18 % 04/23/20 04:15 Glucose 105 mg/dL (75-100) H 04/23/20 04:15 POC Glucose 135 (70-105) H 04/22/20 03:46 Calcium 9.3 mg/dL (8.4-10.2) 04/23/20 04:15 Total Bilirubin 0.50 mg/dL (0.1-1.2) 04/21/20 05:01 Direct Bilirubin < 0.2 mg/dL (0-0.2) 04/21/20 05:01 AST 68 units/L (5-40) H 04/21/20 05:01 ALT 50 units/L (7-56) 04/21/20 05:01 Alkaline Phosphatase 46 units/L (35-129) 04/21/20 05:01 Total Protein 7.2 g/dL (6.3-8.2) 04/21/20 05:01 Albumin 3.6 g/dL (3.9-5) L 04/21/20 05:01 Albumin/Globulin Ratio 1.0 % 04/21/20 05:01 Urine Color Yellow (Yellow) 04/21/20 21:35 Urine Turbidity Clear (Clear) 04/21/20 21:35 Urine pH 5.0 (5.0-7.0) 04/21/20 21:35 Ur Specific [place] 1.013 (1.003-1.030) 04/21/20 21:35 Urine Protein 100 mg/dl mg/dL (Negative) 04/21/20 21:35 Urine Glucose (UA) Neg mg/dL (Negative) 04/21/20 21:35 Urine Ketones Neg mg/dL (Negative) 04/21/20 21:35 Urine Blood Mod (Negative) 04/21/20 21:35 Urine Nitrite Neg (Negative) 04/21/20 21:35 Urine Bilirubin Neg (Negative) 04/21/20 21:35 Urine Urobilinogen < 2.0 mg/dL (<2.0) 04/21/20 21:35 Ur Leukocyte Esterase Neg (Negative) 04/21/20 21:35 Urine WBC (Auto) 1.0 /HPF (0.0-6.0) 04/21/20 21:35 Urine RBC (Auto) 2.0 /HPF (0.0-6.0) 04/21/20 21:35 U Epithel Cells (Auto) < 1.0 /HPF (0-13.0) 04/21/20 21:35 Urine Mucus Few /HPF 04/20/20 Unknown Urine Yeast (Budding) 1+ /HPF 04/20/20 Unknown Urine Eosinophils None seen (None Seen) 04/21/20 21:35 Urine Creatinine 146.0 mg/dL (0.1-20.0) H 04/21/20 21:35 Urine Sodium 11 mmol/L 04/21/20 21:35 Fraction Sodium Excret 0.2 04/21/20 21:35 Hepatitis A IgM Ab Non-reactive (NonReactive) 04/21/20 14:04 Hep Bs Antigen Non-reactive (Negative) 04/21/20 14:04 Hep B Core IgM Ab Non-reactive (NonReactive) 04/21/20 14:04 Hepatitis C Antibody Non-reactive (NonReactive) 04/21/20 14:04 [place]/IV: Voiding Method Urinal IV Catheter Type [Right Hand] INT / Saline Lock Active Medications - Current Medications Current Medications: Generic Name Dose Route Start Last Admin Trade Name Freq PRN Reason Stop Dose Admin Acetaminophen 650 mg 04/21/20 01:54 Tylenol PO Q4H PRN Pain MILD(1-3)/Fever >100.5/NUNO Guaifenesin 10 ml 04/21/20 03:25 04/23/20 00:07 Guaifenesin Dm Syrup PO 10 ml Q6H PRN Administration Cough Heparin Sodium (Porcine) 5,000 unit 04/21/20 06:00 04/23/20 05:48 Heparin SUB-Q 5,000 unit Q8HR JEAN MARIE Administration Sodium Bicarbonate 75 meq/ 1,075 mls @ 75 mls/hr 04/22/20 03:00 04/22/20 19:15 Sodium Chloride IV 75 mls/hr DIRECT JEAN MARIE Administration Magnesium Hydroxide 30 ml 04/21/20 01:54 Milk Of Magnesia PO Q4H PRN Constipation Morphine Sulfate 2 mg 04/21/20 01:54 Morphine IV Q4H PRN Pain, Moderate (4-6) Nifedipine 60 mg 04/21/20 10:00 04/22/20 23:03 Procardia Xl PO 60 mg Q12HR JEAN MARIE Administration Ondansetron HCl 4 mg 04/21/20 01:54 Zofran IV Q8H PRN Nausea And Vomiting Sodium Chloride 10 ml 04/21/20 10:00 04/22/20 23:07 Sodium Chloride Flush Syringe 10 Ml IV Not Given BID JEAN MARIE Sodium Chloride 10 ml 04/21/20 01:54 Sodium Chloride Flush Syringe 10 Ml IV PRN PRN LINE FLUSH
[2020-04-23] MEDS: NIFEdipine XL 60 MG TAB PO SCH ×2 (10:16→21:49)
--- NOTE | 2020-04-23 12:52 | Progress Note ---
Assessment and Plan Impression * Renal failure. Most likely acute on chronic * Uncontrolled hypertension * Metabolic acidosis Recommendations * Renal ultrasound shows small bilateral echogenic kidneys measuring 7.7 and 7.6 cm respectively * Suspect underlying advanced chronic kidney disease. Baseline renal function however not known . * Urine studies seems to be consistent with a prerenal state. Renal function did improve with IV hydration * his urine does show 2+ dipstick protein. Check urine protein creatinine ratio. * Hepatitis B and C both are negative. Follow-up results of vasculitis work-up * Discontinue IV fluid for now with bicarbonate. Add oral sodium bicarbonate * Avoid nephrotoxins * Monitor fluid status and electrolytes closely. Patient is currently nonoliguric * No urgent indication for hemodialysis at this time * Okay to discharge patient home from renal standpoint. He will however require close outpatient follow-up Subjective Date of service: 04/23/20 Interval history: Patient is awake and alert. Denies any shortness of breath. No nausea vomiting or diarrhea. His blood pressure is also under much better control. Objective - Vital Signs Vital signs: Vital Signs - 12hr 04/23/20 04/23/20 04/23/20 02:00 03:26 07:58 Temperature 97.9 F 97.9 F Pulse Rate 74 76 76 Respiratory 18 18 Rate Blood Pressure 149/85 144/77 O2 Sat by Pulse 98 96 Oximetry - General Appearance General appearance: well-developed, well-nourished, appears stated age EENT: PERRL, mucous membranes moist Neck: no JVD, no thyromegaly, no carotid bruit, supple Respiratory: Present: Clear to Ascultation Cardiology: regular, normal heart rate Gastrointestinal: normal, normoactive bowel sounds Integumentary: other (No edema) - Lab 04/22/20 04:49 04/23/20 04:15 Most recent lab results Calcium 9.3 mg/dL (8.4-10.2) 04/23/20 04:15 Urine Creatinine 146.0 mg/dL (0.1-20.0) H 04/21/20 21:35 Urine Sodium 11 mmol/L 04/21/20 21:35 Medications & Allergies - Medications Allergies/Adverse Reactions: Allergies No Known Allergies Allergy (Unverified 04/20/20 22:48) Home Medications: Home Medications Medication Instructions Recorded Confirmed Last Taken Type No Known Home Medications [No 04/21/20 04/21/20 Unknown History Reported Home Medications] Active Medications: Generic Name Dose Route Start Last Admin Trade Name Freq PRN Reason Stop Dose Admin Acetaminophen 650 mg 04/21/20 01:54 Tylenol PO Q4H PRN Pain MILD(1-3)/Fever >100.5/NUNO Guaifenesin 10 ml 04/21/20 03:25 04/23/20 00:07 Guaifenesin Dm Syrup PO 10 ml Q6H PRN Administration Cough Heparin Sodium (Porcine) 5,000 unit 04/21/20 06:00 04/23/20 05:48 Heparin SUB-Q 5,000 unit Q8HR JEAN MARIE Administration Sodium Bicarbonate 75 meq/ 1,075 mls @ 75 mls/hr 04/22/20 03:00 04/22/20 19:15 Sodium Chloride IV 75 mls/hr DIRECT JEAN MARIE Administration Magnesium Hydroxide 30 ml 04/21/20 01:54 Milk Of Magnesia PO Q4H PRN Constipation Morphine Sulfate 2 mg 04/21/20 01:54 Morphine IV Q4H PRN Pain, Moderate (4-6) Nifedipine 60 mg 04/21/20 10:00 04/23/20 10:16 Procardia Xl PO 60 mg Q12HR JEAN MARIE Administration Ondansetron HCl 4 mg 04/21/20 01:54 Zofran IV Q8H PRN Nausea And Vomiting Sodium Chloride 10 ml 04/21/20 10:00 04/23/20 10:16 Sodium Chloride Flush Syringe 10 Ml IV 10 ml BID JEAN MARIE Administration Sodium Chloride 10 ml 04/21/20 01:54 Sodium Chloride Flush Syringe 10 Ml IV PRN PRN LINE FLUSH
[2020-04-23] MEDS: SODIUM BICARBONATE 650 MG TAB PO SCH ×2 (16:52→21:49)
[2020-04-24] MEDS: HEPARIN 5,000 UNIT/1 ML VIAL SUB-Q SCH ×3 (06:17→21:37)
[2020-04-24 07:31] LABS: Calcium 9.2 mg/dL (8.4-10.2)
[2020-04-24] MEDS ORDERED: NIFEdipine XL 60 MG TAB PO SCH (08:46)
--- NOTE | 2020-04-24 08:48 | Progress Note ---
Assessment and Plan Assessment and plan: Dizziness Resolved. Possibly secondary to the elevated blood pressure. Malignant hypertension Start Procardia 60 mg twice daily Acute on chronic renal failure Possibly secondary to longstanding hypertension versus volume depletion. Patient given some IV fluid in the emergency room. Will place consult to nephrology for evaluation and recommendation. Check renal ultrasound DVT prophylaxis Patient placed on subcutaneous heparin. Full code status 04/22/2020. Baseline renal function is not known. Patient likely has some degree of underlying chronic kidney disease. Follow-up renal ultrasound and vasculitis work-up. Continue to avoid nephrotoxins. Monitor fluid status and electrolytes closely. Blood pressure much better controlled with the addition of Procardia twice daily. 04/23/2020. Creatinine with some improvement to 3.8. Urine studies seems to be consistent with a prerenal state. His urine does show 2+ dipstick protein. Check urine protein creatinine ratio. Await renal ultrasound. Blood pressure with adequate control. 04/24/2020. Creatinine continues to improve with a value of 3.2 today. Renal ultrasound reveals mild bilateral cortical thinning. No hydronephrosis. Blood pressure still elevated. We will increase Procardia to 90 mg twice daily. PT evaluation. History Interval history: Patient denies any chest pain or shortness of breath. Patient states his dizziness has resolved. Hospitalist Physical - Constitutional Vitals: Temp Pulse Resp BP Pulse Ox 98.1 F 80 18 176/93 97 04/24/20 08:38 04/24/20 08:38 04/24/20 08:38 04/24/20 08:38 04/24/20 08:38 General appearance: Present: no acute distress, well-nourished - EENT Eyes: Present: PERRL, EOM intact ENT: hearing intact, clear oral mucosa, dentition normal - Neck Neck: Present: supple, normal ROM - Respiratory Respiratory effort: normal Respiratory: bilateral: CTA - Cardiovascular Rhythm: regular Heart Sounds: Present: S1 & S2. Absent: gallop, rub - Extremities Extremities: no ischemia, No edema, Full ROM - Abdominal General gastrointestinal: soft, non-tender, non-distended, normal bowel sounds - Integumentary Integumentary: Present: clear, warm, dry - Neurologic Neurologic: CNII-XII intact, moves all extremities Results - Labs CBC & Chem 7: 04/22/20 04:49 04/24/20 06:31 Labs: Laboratory Last Values WBC 4.3 K/mm3 (4.5-11.0) L 04/22/20 04:49 RBC 4.01 M/mm3 (3.65-5.03) 04/22/20 04:49 Hgb 11.7 gm/dl (11.8-15.2) L 04/22/20 04:49 Hct 33.9 % (35.5-45.6) L D 04/22/20 04:49 MCV 84 fl (84-94) 04/22/20 04:49 MCH 29 pg (28-32) 04/22/20 04:49 MCHC 35 % (32-34) H 04/22/20 04:49 RDW 14.8 % (13.2-15.2) 04/22/20 04:49 Plt Count 161 K/mm3 (140-440) 04/22/20 04:49 Lymph % (Auto) 11.4 % (13.4-35.0) L 04/22/20 04:49 [place] % (Auto) 12.0 % (0.0-7.3) H 04/22/20 04:49 Eos % (Auto) 0.1 % (0.0-4.3) 04/22/20 04:49 Baso % (Auto) 0.3 % (0.0-1.8) 04/22/20 04:49 Lymph # 0.5 K/mm3 (1.2-5.4) L 04/22/20 04:49 [place] # 0.5 K/mm3 (0.0-0.8) 04/22/20 04:49 Eos # 0.0 K/mm3 (0.0-0.4) 04/22/20 04:49 Baso # 0.0 K/mm3 (0.0-0.1) 04/22/20 04:49 Seg Neutrophils % 76.2 % (40.0-70.0) H 04/22/20 04:49 Seg Neutrophils # 3.3 K/mm3 (1.8-7.7) 04/22/20 04:49 PT 15.1 Sec. (12.2-14.9) H 04/22/20 04:49 INR 1.16 (0.87-1.13) H 04/22/20 04:49 Sodium 140 mmol/L (137-145) 04/24/20 06:31 Potassium 3.7 mmol/L (3.6-5.0) 04/24/20 06:31 Chloride 99.4 mmol/L (98-107) 04/24/20 06:31 Carbon Dioxide 26 mmol/L (22-30) 04/24/20 06:31 Anion Gap 18 mmol/L 04/24/20 06:31 BUN 50 mg/dL (9-20) H 04/24/20 06:31 Creatinine 3.2 mg/dL (0.8-1.3) H 04/24/20 06:31 Estimated GFR 24 ml/min 04/24/20 06:31 BUN/Creatinine Ratio 16 % 04/24/20 06:31 Glucose 100 mg/dL (75-100) 04/24/20 06:31 POC Glucose 135 (70-105) H 04/22/20 03:46 Calcium 9.2 mg/dL (8.4-10.2) 04/24/20 06:31 Total Bilirubin 0.50 mg/dL (0.1-1.2) 04/21/20 05:01 Direct Bilirubin < 0.2 mg/dL (0-0.2) 04/21/20 05:01 AST 68 units/L (5-40) H 04/21/20 05:01 ALT 50 units/L (7-56) 04/21/20 05:01 Alkaline Phosphatase 46 units/L (35-129) 04/21/20 05:01 Total Protein 7.2 g/dL (6.3-8.2) 04/21/20 05:01 Albumin 3.6 g/dL (3.9-5) L 04/21/20 05:01 Albumin/Globulin Ratio 1.0 % 04/21/20 05:01 Urine Color Yellow (Yellow) 04/21/20 21:35 Urine Turbidity Clear (Clear) 04/21/20 21:35 Urine pH 5.0 (5.0-7.0) 04/21/20 21:35 Ur Specific [place] 1.013 (1.003-1.030) 04/21/20 21:35 Urine Protein 100 mg/dl mg/dL (Negative) 04/21/20 21:35 Urine Glucose (UA) Neg mg/dL (Negative) 04/21/20 21:35 Urine Ketones Neg mg/dL (Negative) 04/21/20 21:35 Urine Blood Mod (Negative) 04/21/20 21:35 Urine Nitrite Neg (Negative) 04/21/20 21:35 Urine Bilirubin Neg (Negative) 04/21/20 21:35 Urine Urobilinogen < 2.0 mg/dL (<2.0) 04/21/20 21:35 Ur Leukocyte Esterase Neg (Negative) 04/21/20 21:35 Urine WBC (Auto) 1.0 /HPF (0.0-6.0) 04/21/20 21:35 Urine RBC (Auto) 2.0 /HPF (0.0-6.0) 04/21/20 21:35 U Epithel Cells (Auto) < 1.0 /HPF (0-13.0) 04/21/20 21:35 Urine Mucus Few /HPF 04/20/20 Unknown Urine Yeast (Budding) 1+ /HPF 04/20/20 Unknown Urine Eosinophils None seen (None Seen) 04/21/20 21:35 Urine Creatinine 146.0 mg/dL (0.1-20.0) H 04/21/20 21:35 Urine Sodium 11 mmol/L 04/21/20 21:35 Fraction Sodium Excret 0.2 04/21/20 21:35 Hepatitis A IgM Ab Non-reactive (NonReactive) 04/21/20 14:04 Hep Bs Antigen Non-reactive (Negative) 04/21/20 14:04 Hep B Core IgM Ab Non-reactive (NonReactive) 04/21/20 14:04 Hepatitis C Antibody Non-reactive (NonReactive) 04/21/20 14:04 [place]/IV: Voiding Method Toilet IV Catheter Type [Right Hand] INT / Saline Lock Active Medications - Current Medications Current Medications: Generic Name Dose Route Start Last Admin Trade Name Freq PRN Reason Stop Dose Admin Acetaminophen 650 mg 04/21/20 01:54 Tylenol PO Q4H PRN Pain MILD(1-3)/Fever >100.5/NUNO Guaifenesin 10 ml 04/21/20 03:25 04/23/20 00:07 Guaifenesin Dm Syrup PO 10 ml Q6H PRN Administration Cough Heparin Sodium (Porcine) 5,000 unit 04/21/20 06:00 04/24/20 06:17 Heparin SUB-Q 5,000 unit Q8HR JEAN MARIE Administration Magnesium Hydroxide 30 ml 04/21/20 01:54 Milk Of Magnesia PO Q4H PRN Constipation Morphine Sulfate 2 mg 04/21/20 01:54 Morphine IV Q4H PRN Pain, Moderate (4-6) Nifedipine 60 mg 04/21/20 10:00 04/23/20 21:49 Procardia Xl PO 60 mg Q12HR JEAN MARIE Administration Ondansetron HCl 4 mg 04/21/20 01:54 Zofran IV Q8H PRN Nausea And Vomiting Sodium Bicarbonate 650 mg 04/23/20 13:00 04/23/20 21:49 Sodium Bicarbonate PO 650 mg BID JEAN MARIE Administration Sodium Chloride 10 ml 04/21/20 10:00 04/23/20 21:49 Sodium Chloride Flush Syringe 10 Ml IV 10 ml BID JEAN MARIE Administration Sodium Chloride 10 ml 04/21/20 01:54 Sodium Chloride Flush Syringe 10 Ml IV PRN PRN LINE FLUSH
[2020-04-24] MEDS: NIFEdipine XL 90 MG TAB PO SCH ×2 (10:07→21:37)
[2020-04-24] MEDS: SODIUM BICARBONATE 650 MG TAB PO SCH ×2 (10:07→21:37)
--- NOTE | 2020-04-24 15:55 | Progress Note ---
Assessment and Plan Impression * Renal failure. Most likely acute on chronic * Uncontrolled hypertension * Metabolic acidosis Recommendations * Renal ultrasound shows small bilateral echogenic kidneys measuring 7.7 and 7.6 cm respectively * Suspect underlying advanced chronic kidney disease. Baseline renal function however not known . * Urine studies seems to be consistent with a prerenal state. Renal function did improve with IV hydration * his urine does show 2+ dipstick protein. Check urine protein creatinine ratio. * Hepatitis B and C both are negative. Follow-up results of vasculitis work-up * Avoid nephrotoxins * Monitor fluid status and electrolytes closely. Patient is currently nonoliguric * No urgent indication for hemodialysis at this time * His blood pressure is noted to be elevated this morning. Adjust his antihypertensive medication * Okay to discharge patient home from renal standpoint. He will however require close outpatient follow-up Subjective Date of service: 04/24/20 Interval history: Patient is awake and alert. Denies any shortness of breath. No nausea vomiting or diarrhea. Objective - Vital Signs Vital signs: Vital Signs - 12hr 04/24/20 04/24/20 04/24/20 08:38 10:00 12:23 Temperature 98.1 F 98.2 F Pulse Rate 80 74 68 Respiratory 18 18 Rate Blood Pressure 176/93 Blood Pressure 170/86 [Left] O2 Sat by Pulse 97 100 Oximetry - General Appearance General appearance: well-developed, well-nourished, appears stated age EENT: PERRL, mucous membranes moist Neck: no JVD, no thyromegaly, no carotid bruit, supple Respiratory: Present: Clear to Ascultation Cardiology: regular, normal heart rate, S1S2, no murmurs Gastrointestinal: normal, normoactive bowel sounds Integumentary: no rash, other (No edema) - Lab 04/22/20 04:49 04/24/20 06:31 Most recent lab results Calcium 9.2 mg/dL (8.4-10.2) 04/24/20 06:31 Urine Creatinine 146.0 mg/dL (0.1-20.0) H 04/21/20 21:35 Urine Sodium 11 mmol/L 04/21/20 21:35 Medications & Allergies - Medications Allergies/Adverse Reactions: Allergies No Known Allergies Allergy (Unverified 04/20/20 22:48) Home Medications: Home Medications Medication Instructions Recorded Confirmed Last Taken Type No Known Home Medications [No 04/21/20 04/21/20 Unknown History Reported Home Medications] Active Medications: Generic Name Dose Route Start Last Admin Trade Name Freq PRN Reason Stop Dose Admin Acetaminophen 650 mg 04/21/20 01:54 Tylenol PO Q4H PRN Pain MILD(1-3)/Fever >100.5/NUNO Guaifenesin 10 ml 04/21/20 03:25 04/23/20 00:07 Guaifenesin Dm Syrup PO 10 ml Q6H PRN Administration Cough Heparin Sodium (Porcine) 5,000 unit 04/21/20 06:00 04/24/20 14:00 Heparin SUB-Q 5,000 unit Q8HR JEAN MARIE Administration Magnesium Hydroxide 30 ml 04/21/20 01:54 Milk Of Magnesia PO Q4H PRN Constipation Morphine Sulfate 2 mg 04/21/20 01:54 Morphine IV Q4H PRN Pain, Moderate (4-6) Nifedipine 90 mg 04/24/20 10:00 04/24/20 10:07 Procardia Xl PO 90 mg Q12HR JEAN MARIE Administration Ondansetron HCl 4 mg 04/21/20 01:54 Zofran IV Q8H PRN Nausea And Vomiting Sodium Bicarbonate 650 mg 04/23/20 13:00 04/24/20 10:07 Sodium Bicarbonate PO 650 mg BID JEAN MARIE Administration Sodium Chloride 10 ml 04/21/20 10:00 04/24/20 10:07 Sodium Chloride Flush Syringe 10 Ml IV 10 ml BID JEAN MARIE Administration Sodium Chloride 10 ml 04/21/20 01:54 Sodium Chloride Flush Syringe 10 Ml IV PRN PRN LINE FLUSH
[2020-04-24] MEDS ORDERED: hydrALAZINE 25 MG TAB PO ONE (16:55)
[2020-04-25] MEDS: HEPARIN 5,000 UNIT/1 ML VIAL SUB-Q SCH ×3 (06:00→21:30)
[2020-04-25 06:24] LABS: Basophils % (Auto) 0.5 % (0.0-1.8); Eosinophils # (Auto) 0.1 K/mm3 (0.0-0.4); Eosinophils % (Auto) 1.5 % (0.0-4.3); Hematocrit 36.2 % (35.5-45.6); Hemoglobin 12.5 gm/dl (11.8-15.2); Lymphocytes # (Auto) 0.7 K/mm3 (1.2-5.4); Lymphocytes % (Auto) 17.6 % (13.4-35.0); Mean Corpuscular HGB Conc 35 % (32-34); Mean Corpuscular Volume 86 fl (84-94); Monocytes # (Auto) 0.6 K/mm3 (0.0-0.8); Monocytes % (Auto) 15.8 % (0.0-7.3); Platelet Count 205 K/mm3 (140-440); Red Blood Count 4.23 M/mm3 (3.65-5.03); Red Cell Distribution Width 14.7 % (13.2-15.2)
[2020-04-25 06:38] LABS: Calcium 9.7 mg/dL (8.4-10.2)
[2020-04-25] MEDS: guaiFENesin DM 200/20 MG ORAL LIQD 10 ML PO PRN (07:27)
--- NOTE | 2020-04-25 08:13 | Progress Note ---
Assessment and Plan Assessment and plan: Malignant hypertension; remains uncontrolled Blood pressures in the 180s systolic Continue Procardia 60 mg twice daily, hydralazine 25 mg 3 times a day increase hydralazine to 50 mg 3 times a day If no improvement will add carvedilol 6.5 twice a day closely monitor We will closely monitor overnight and possible discharge home tomorrow if stable Patient strongly advised to comply with medications diet and follow-up visits Dizziness Resolved. Possibly secondary to the elevated blood pressure. Supportive care Acute on chronic renal failure; Partly vasomotor nephropathy ,possibly secondary to longstanding hypertension versus volume depletion. Patient given some IV fluid in the emergency room. Nephrology following, follow renal ultrasound DVT prophylaxis Patient placed on subcutaneous heparin. Full code status We will closely monitor the patient and adjust the management as needed Possible discharge home tomorrow if stable Plan of care reviewed with the patient and his nurse 04/22/2020. Baseline renal function is not known. Patient likely has some degree of underlying chronic kidney disease. Follow-up renal ultrasound and vasculitis work-up. Continue to avoid nephrotoxins. Monitor fluid status and electrolytes closely. Blood pressure much better controlled with the addition of Procardia twice daily. 04/23/20. Creatinine with some improvement to 3.8. Urine studies seems to be consistent with a prerenal state. His urine does show 2+ dipstick protein. Check urine protein creatinine ratio. Await renal ultrasound. Blood pressure w ith adequate control. 04/24/20. Creatinine continues to improve with a value of 3.2 today. Renal ul trasound reveals mild bilateral cortical thinning. No hydronephrosis. Blood pressure still elevated. We will increase Procardia to 90 mg twice daily. PT evaluation. 04/25/20; patient's blood pressures remain uncontrolled, though slightly improved from admission, adjusted doses of multiple antihypertensives Closely monitor blood pressures optimize medications History Interval history: I have seen and examined the patient in his room this morning at the bedside Patient's chart and current medications reviewed Patient is concerned about uncontrolled blood pressures Denies chest pain or shortness of breath Vital signs reviewed Hospitalist Physical - Constitutional Vitals: Temp Pulse Resp BP Pulse Ox 98.3 F 95 H 18 181/95 95 04/25/20 03:25 04/25/20 03:25 04/25/20 07:34 04/25/20 03:40 04/25/20 03:25 General appearance: Present: no acute distress, well-nourished - EENT Eyes: Present: PERRL, EOM intact - Neck Neck: Present: supple, enlarged thyroid - Respiratory Respiratory effort: normal Respiratory: bilateral: diminished, negative: rales, rhonchi, wheezing - Cardiovascular Rhythm: regular Heart Sounds: Present: S1 & S2 - Extremities Extremities: no ischemia, No edema - Abdominal General gastrointestinal: soft, non-tender, non-distended, normal bowel sounds - Integumentary Integumentary: Present: clear, warm - Psychiatric Psychiatric: appropriate mood/affect, cooperative - Neurologic Neurologic: moves all extremities Results - Labs CBC & Chem 7: 04/25/20 05:14 04/25/20 05:14 Labs: Laboratory Last Values WBC 3.9 K/mm3 (4.5-11.0) L 04/25/20 05:14 RBC 4.23 M/mm3 (3.65-5.03) 04/25/20 05:14 Hgb 12.5 gm/dl (11.8-15.2) 04/25/20 05:14 Hct 36.2 % (35.5-45.6) 04/25/20 05:14 MCV 86 fl (84-94) 04/25/20 05:14 MCH 30 pg (28-32) 04/25/20 05:14 MCHC 35 % (32-34) H 04/25/20 05:14 RDW 14.7 % (13.2-15.2) 04/25/20 05:14 Plt Count 205 K/mm3 (140-440) 04/25/20 05:14 Lymph % (Auto) 17.6 % (13.4-35.0) 04/25/20 05:14 [place] % (Auto) 15.8 % (0.0-7.3) H 04/25/20 05:14 Eos % (Auto) 1.5 % (0.0-4.3) 04/25/20 05:14 Baso % (Auto) 0.5 % (0.0-1.8) 04/25/20 05:14 Lymph # 0.7 K/mm3 (1.2-5.4) L 04/25/20 05:14 [place] # 0.6 K/mm3 (0.0-0.8) 04/25/20 05:14 Eos # 0.1 K/mm3 (0.0-0.4) 04/25/20 05:14 Baso # 0.0 K/mm3 (0.0-0.1) 04/25/20 05:14 Seg Neutrophils % 64.6 % (40.0-70.0) 04/25/20 05:14 Seg Neutrophils # 2.5 K/mm3 (1.8-7.7) 04/25/20 05:14 PT 15.1 Sec. (12.2-14.9) H 04/22/20 04:49 INR 1.16 (0.87-1.13) H 04/22/20 04:49 Sodium 140 mmol/L (137-145) 04/25/20 05:14 Potassium 3.8 mmol/L (3.6-5.0) 04/25/20 05:14 Chloride 100.4 mmol/L (98-107) 04/25/20 05:14 Carbon Dioxide 25 mmol/L (22-30) 04/25/20 05:14 Anion Gap 18 mmol/L 04/25/20 05:14 BUN 39 mg/dL (9-20) H 04/25/20 05:14 Creatinine 3.2 mg/dL (0.8-1.3) H 04/25/20 05:14 Estimated GFR 24 ml/min 04/25/20 05:14 BUN/Creatinine Ratio 12 % 04/25/20 05:14 Glucose 92 mg/dL (75-100) 04/25/20 05:14 POC Glucose 135 (70-105) H 04/22/20 03:46 Calcium 9.7 mg/dL (8.4-10.2) 04/25/20 05:14 Total Bilirubin 0.50 mg/dL (0.1-1.2) 04/21/20 05:01 Direct Bilirubin < 0.2 mg/dL (0-0.2) 04/21/20 05:01 AST 68 units/L (5-40) H 04/21/20 05:01 ALT 50 units/L (7-56) 04/21/20 05:01 Alkaline Phosphatase 46 units/L (35-129) 04/21/20 05:01 Total Protein 7.2 g/dL (6.3-8.2) 04/21/20 05:01 Albumin 3.6 g/dL (3.9-5) L 04/21/20 05:01 Albumin/Globulin Ratio 1.0 % 04/21/20 05:01 Urine Color Yellow (Yellow) 04/21/20 21:35 Urine Turbidity Clear (Clear) 04/21/20 21:35 Urine pH 5.0 (5.0-7.0) 04/21/20 21:35 Ur Specific [place] 1.013 (1.003-1.030) 04/21/20 21:35 Urine Protein 100 mg/dl mg/dL (Negative) 04/21/20 21:35 Urine Glucose (UA) Neg mg/dL (Negative) 04/21/20 21:35 Urine Ketones Neg mg/dL (Negative) 04/21/20 21:35 Urine Blood Mod (Negative) 04/21/20 21:35 Urine Nitrite Neg (Negative) 04/21/20 21:35 Urine Bilirubin Neg (Negative) 04/21/20 21:35 Urine Urobilinogen < 2.0 mg/dL (<2.0) 04/21/20 21:35 Ur Leukocyte Esterase Neg (Negative) 04/21/20 21:35 Urine WBC (Auto) 1.0 /HPF (0.0-6.0) 04/21/20 21:35 Urine RBC (Auto) 2.0 /HPF (0.0-6.0) 04/21/20 21:35 U Epithel Cells (Auto) < 1.0 /HPF (0-13.0) 04/21/20 21:35 Urine Mucus Few /HPF 04/20/20 Unknown Urine Yeast (Budding) 1+ /HPF 04/20/20 Unknown Urine Eosinophils None seen (None Seen) 04/21/20 21:35 Urine Creatinine 146.0 mg/dL (0.1-20.0) H 04/21/20 21:35 Urine Sodium 11 mmol/L 04/21/20 21:35 Fraction Sodium Excret 0.2 04/21/20 21:35 Hepatitis A IgM Ab Non-reactive (NonReactive) 04/21/20 14:04 Hep Bs Antigen Non-reactive (Negative) 04/21/20 14:04 Hep B Core IgM Ab Non-reactive (NonReactive) 04/21/20 14:04 Hepatitis C Antibody Non-reactive (NonReactive) 04/21/20 14:04 [place]/IV: Voiding Method Urinal IV Catheter Type [Right Hand] INT / Saline Lock Active Medications - Current Medications Current Medications: Generic Name Dose Route Start Last Admin Trade Name Freq PRN Reason Stop Dose Admin Acetaminophen 650 mg 04/21/20 01:54 Tylenol PO Q4H PRN Pain MILD(1-3)/Fever >100.5/NUNO Guaifenesin 10 ml 04/21/20 03:25 04/25/20 07:27 Guaifenesin Dm Syrup PO 10 ml Q6H PRN Administration Cough Heparin Sodium (Porcine) 5,000 unit 04/21/20 06:00 04/25/20 06:00 Heparin SUB-Q 5,000 unit Q8HR JEAN MARIE Administration Magnesium Hydroxide 30 ml 04/21/20 01:54 Milk Of Magnesia PO Q4H PRN Constipation Morphine Sulfate 2 mg 04/21/20 01:54 Morphine IV Q4H PRN Pain, Moderate (4-6) Nifedipine 90 mg 04/24/20 10:00 04/24/20 21:37 Procardia Xl PO 90 mg Q12HR JEAN MARIE Administration Ondansetron HCl 4 mg 04/21/20 01:54 Zofran IV Q8H PRN Nausea And Vomiting Sodium Bicarbonate 650 mg 04/23/20 13:00 04/24/20 21:37 Sodium Bicarbonate PO 650 mg BID JEAN MARIE Administration Sodium Chloride 10 ml 04/21/20 10:00 04/24/20 21:38 Sodium Chloride Flush Syringe 10 Ml IV 10 ml BID JEAN MARIE Administration Sodium Chloride 10 ml 04/21/20 01:54 Sodium Chloride Flush Syringe 10 Ml IV PRN PRN LINE FLUSH
[2020-04-25] MEDS: SODIUM BICARBONATE 650 MG TAB PO SCH ×2 (09:02→21:29)
[2020-04-25] MEDS: NIFEdipine XL 90 MG TAB PO SCH ×2 (09:02→22:51)
--- NOTE | 2020-04-25 11:56 | Progress Note ---
Assessment and Plan Impression * Kidney injury, most likely acute on chronic * Uncontrolled hypertension * Metabolic acidosis * Dizziness Recommendations * Renal ultrasound shows small bilateral echogenic kidneys measuring 7.7 and 7.6 cm respectively * Suspect underlying advanced chronic kidney disease. Baseline renal function however not known, has never seen nephrology before * Urine studies seems to be consistent with a prerenal state. Creatinine did improve with IV hydration * Creatinine stable this AM to 3.2, likely baseline * Urine does show 2+ dipstick protein. Check urine protein creatinine ratio. * Hepatitis B and C both are negative. Follow-up results of vasculitis work-up * Avoid nephrotoxins * Monitor fluid status and electrolytes closely. Patient is currently nonoliguric * No urgent indication for hemodialysis at this time * His blood pressure is noted to be elevated, agree with nifedipine and hydralazine per primary. Consider carvedilol if remains high * Okay to discharge patient home from renal standpoint. He will however require close outpatient follow-up, will arrange Subjective Date of service: 04/25/20 Interval history: Patient is awake and alert. Denies any shortness of breath. No nausea vomiting or diarrhea. Wants to go home Objective - Exam Narrative Exam: General appearance: well-developed, well-nourished, appears stated age EENT: PERRL, mucous membranes moist Neck: no carotid bruit, supple Respiratory: Present: Clear to Ascultation Cardiology: regular, normal heart rate, S1S2, no murmurs Gastrointestinal: normal, normoactive bowel sounds Integumentary: no rash, other (No edema) Neuro: alert, oriented x3 - Vital Signs Vital signs: Vital Signs - 12hr 04/25/20 04/25/20 04/25/20 03:25 03:40 07:34 Temperature 98.3 F Pulse Rate 95 H Respiratory 16 18 Rate Blood Pressure 182/105 Blood Pressure 181/95 [Left] O2 Sat by Pulse 95 Oximetry 04/25/20 04/25/20 08:19 08:27 Temperature 97.9 F Pulse Rate 91 H 90 Respiratory 18 Rate Blood Pressure 183/105 Blood Pressure [Left] O2 Sat by Pulse 96 Oximetry - Lab 04/25/20 05:14 04/25/20 05:14 Most recent lab results Calcium 9.7 mg/dL (8.4-10.2) 04/25/20 05:14 Urine Creatinine 146.0 mg/dL (0.1-20.0) H 04/21/20 21:35 Urine Sodium 11 mmol/L 04/21/20 21:35 Medications & Allergies - Medications Allergies/Adverse Reactions: Allergies No Known Allergies Allergy (Unverified 04/20/20 22:48) Home Medications: Home Medications Medication Instructions Recorded Confirmed Last Taken Type No Known Home Medications [No 04/21/20 04/21/20 Unknown History Reported Home Medications] Active Medications: Generic Name Dose Route Start Last Admin Trade Name Freq PRN Reason Stop Dose Admin Acetaminophen 650 mg 04/21/20 01:54 Tylenol PO Q4H PRN Pain MILD(1-3)/Fever >100.5/NUNO Guaifenesin 10 ml 04/21/20 03:25 04/25/20 07:27 Guaifenesin Dm Syrup PO 10 ml Q6H PRN Administration Cough Heparin Sodium (Porcine) 5,000 unit 04/21/20 06:00 04/25/20 06:00 Heparin SUB-Q 5,000 unit Q8HR JEAN MARIE Administration Hydralazine HCl 25 mg 04/25/20 14:00 Apresoline PO Q8HR JEAN MARIE Magnesium Hydroxide 30 ml 04/21/20 01:54 Milk Of Magnesia PO Q4H PRN Constipation Morphine Sulfate 2 mg 04/21/20 01:54 Morphine IV Q4H PRN Pain, Moderate (4-6) Nifedipine 90 mg 04/24/20 10:00 04/25/20 09:02 Procardia Xl PO 90 mg Q12HR JEAN MARIE Administration Ondansetron HCl 4 mg 04/21/20 01:54 Zofran IV Q8H PRN Nausea And Vomiting Sodium Bicarbonate 650 mg 04/23/20 13:00 04/25/20 09:02 Sodium Bicarbonate PO 650 mg BID JEAN MARIE Administration Sodium Chloride 10 ml 04/21/20 10:00 04/25/20 09:03 Sodium Chloride Flush Syringe 10 Ml IV 10 ml BID JEAN MARIE Administration Sodium Chloride 10 ml 04/21/20 01:54 Sodium Chloride Flush Syringe 10 Ml IV PRN PRN LINE FLUSH
[2020-04-25] MEDS ORDERED: hydrALAZINE 25 MG TAB PO SCH (14:00)
[2020-04-25] MEDS: hydrALAZINE 25 MG TAB PO SCH (21:30)
[2020-04-25] MEDS: carvediloL 6.25 MG TAB PO SCH (22:51)
[2020-04-26] MEDS: hydrALAZINE 25 MG TAB PO SCH ×2 (05:28→13:48)
[2020-04-26] MEDS: HEPARIN 5,000 UNIT/1 ML VIAL SUB-Q SCH ×2 (05:28→13:48)
[2020-04-26 06:51] LABS: Calcium 9.6 mg/dL (8.4-10.2)
[2020-04-26] MEDS: carvediloL 6.25 MG TAB PO SCH (10:08)
[2020-04-26] MEDS: NIFEdipine XL 90 MG TAB PO SCH (10:08)
[2020-04-26] MEDS: SODIUM BICARBONATE 650 MG TAB PO SCH (10:08)
[2020-04-26 10:09] VITALS: BP 143/73
--- NOTE | 2020-04-26 11:27 | Discharge Summary ---
Providers - Providers Date of Admission: 04/21/20 13:08 Date of discharge: 04/26/20 Attending physician: LAURA OLIVERA 04/21/20 01:54 Consult to Physician [CONS] Routine Comment: Consulting Provider: VICTORINA MENA Physician Instructions: Reason For Exam: ACUTE RENAL FAILURE 04/24/20 08:47 Physical Therapy Evaluation and Treat [CONS] Routine Comment: Reason For Exam: deconditioning Primary care physician: [facility] Hospitalization Condition: Stable Disposition: DC-01 TO HOME OR SELFCARE Time spent for discharge: 32 min Core Measure Documentation - Palliative Care Palliative Care/ Comfort Measures: Not Applicable - Core Measures Any of the following diagnoses?: none Exam - Constitutional Vitals: Temp Pulse Resp BP Pulse Ox 98.8 F 83 16 143/73 96 04/26/20 03:48 04/26/20 10:08 04/26/20 03:48 04/26/20 10:08 04/26/20 03:48 General appearance: Present: no acute distress, well-nourished - EENT Eyes: Present: PERRL, EOM intact - Neck Neck: Present: supple, normal ROM - Respiratory Respiratory effort: normal Respiratory: bilateral: diminished, negative: rales, rhonchi, wheezing Plan Activity: no restrictions Diet: other (Cardiac diet) Additional Instructions: Advised to comply with medications, diet, follow-up visits. If you have worsening symptoms contact MD or go to emergency room. Advised to take plenty of fluids Follow up with: JULI CHAPIN MD [Primary Care Provider] - 3-5 Days ROYAL MATUTE MD [Staff Physician] - 7 Days Prescriptions: carvediloL [Coreg] 6.25 mg PO BID #60 tablet Hydralazine HCl 50 mg PO Q8H #90 tablet NIFEdipine XL [Procardia Xl] 90 mg PO Q12HR #60 tablet
--- NOTE | 2020-04-26 12:27 | Progress Note ---
Assessment and Plan Impression * Kidney injury, most likely acute on chronic * Uncontrolled hypertension * Metabolic acidosis * Dizziness Recommendations * Renal ultrasound shows small bilateral echogenic kidneys measuring 7.7 and 7.6 cm respectively * Suspect underlying advanced chronic kidney disease. Baseline renal function however not known, has never seen nephrology before * Urine studies seems to be consistent with a prerenal state. Creatinine did improve with IV hydration * Creatinine stable this AM to 3.3, likely baseline * Urine does show 2+ dipstick protein. Check urine protein creatinine ratio. * Hepatitis B and C both are negative. Follow-up results of vasculitis work-up, C3 WNL * Avoid nephrotoxins * Monitor fluid status and electrolytes closely. Patient is currently nonoliguric * No urgent indication for hemodialysis at this time * His blood pressure has improved, agree with nifedipine and hydralazine per primary, now on carvedilol * Okay to discharge patient home from renal standpoint. He will however require close outpatient follow-up, will arrange Subjective Date of service: 04/26/20 Interval history: Patient is awake and alert. Denies any shortness of breath. No nausea vomiting or diarrhea. Wants to go home Objective - Exam Narrative Exam: General appearance: well-developed, well-nourished, appears stated age EENT: PERRL, mucous membranes moist Neck: no carotid bruit, supple Respiratory: Present: Clear to Ascultation Cardiology: regular, normal heart rate, S1S2, no murmurs Gastrointestinal: normal, normoactive bowel sounds Integumentary: no rash, other (No edema) Neuro: alert, oriented x3 - Vital Signs Vital signs: Vital Signs - 12hr 04/26/20 04/26/20 04/26/20 03:48 05:28 10:00 Temperature 98.8 F Pulse Rate 86 86 80 Respiratory 16 Rate Blood Pressure 160/67 160/67 O2 Sat by Pulse 96 Oximetry 04/26/20 10:08 Temperature Pulse Rate 83 Respiratory Rate Blood Pressure 143/73 O2 Sat by Pulse Oximetry - Lab 04/25/20 05:14 04/26/20 04:35 Most recent lab results Calcium 9.6 mg/dL (8.4-10.2) 04/26/20 04:35 Magnesium 2.20 mg/dL (1.7-2.3) 04/26/20 04:35 Urine Creatinine 146.0 mg/dL (0.1-20.0) H 04/21/20 21:35 Urine Sodium 11 mmol/L 04/21/20 21:35 Medications & Allergies - Medications Allergies/Adverse Reactions: Allergies No Known Allergies Allergy (Unverified 04/20/20 22:48) Home Medications: Home Medications Medication Instructions Recorded Confirmed Last Taken Type Hydralazine HCl 50 mg PO Q8H #90 tablet 04/26/20 Unknown Rx NIFEdipine XL [Procardia Xl] 90 mg PO Q12HR #60 tablet 04/26/20 Unknown Rx carvediloL [Coreg] 6.25 mg PO BID #60 tablet 04/26/20 Unknown Rx Active Medications: Generic Name Dose Route Start Last Admin Trade Name Freq PRN Reason Stop Dose Admin Acetaminophen 650 mg 04/21/20 01:54 Tylenol PO Q4H PRN Pain MILD(1-3)/Fever >100.5/NUNO Carvedilol 6.25 mg 04/25/20 22:00 04/26/20 10:08 Coreg PO 6.25 mg BID JEAN MARIE Administration Guaifenesin 10 ml 04/21/20 03:25 04/25/20 07:27 Guaifenesin Dm Syrup PO 10 ml Q6H PRN Administration Cough Heparin Sodium (Porcine) 5,000 unit 04/21/20 06:00 04/26/20 05:28 Heparin SUB-Q 5,000 unit Q8HR EJAN MARIE Administration Hydralazine HCl 50 mg 04/25/20 20:00 04/26/20 05:28 Apresoline PO 50 mg Q8HR JEAN MARIE Administration Magnesium Hydroxide 30 ml 04/21/20 01:54 Milk Of Magnesia PO Q4H PRN Constipation Morphine Sulfate 2 mg 04/21/20 01:54 Morphine IV Q4H PRN Pain, Moderate (4-6) Nifedipine 90 mg 04/24/20 10:00 04/26/20 10:08 Procardia Xl PO 90 mg Q12HR JEAN MARIE Administration Ondansetron HCl 4 mg 04/21/20 01:54 Zofran IV Q8H PRN Nausea And Vomiting Sodium Bicarbonate 650 mg 04/23/20 13:00 04/26/20 10:08 Sodium Bicarbonate PO 650 mg BID JEAN MARIE Administration Sodium Chloride 10 ml 04/21/20 10:00 04/26/20 10:08 Sodium Chloride Flush Syringe 10 Ml IV 10 ml BID JEAN MARIE Administration Sodium Chloride 10 ml 04/21/20 01:54 Sodium Chloride Flush Syringe 10 Ml IV PRN PRN LINE FLUSH
[2020-04-27 00:02] LABS: Albumin 3.2 g/dL (3.8-4.8); Gamma Globulin 1.3 g/dL (0.8-1.7)
[2020-04-27 14:09] LABS: Myeloperoxidase Antibody <1.0 AI (<1.0)
[2020-04-27 22:38] LABS: ANA Screen, IFA Negative (Negative)
== END 2020-04-26 15:10 | disposition home or self-care (01) | DRG 683 ==
LOC: ED 17:08 → 4A 04-21 00:46 → OBSVTOIN 04-21 13:08
PROVIDERS: ADMIT Internal Medicine Geriatric Medicine; ATTEND Internal Medicine
DX: I12.9 Hypertensive chronic kidney disease with stage 1 through stage 4 chronic kidney disease, or unspecified chronic kidney disease (principal); E87.2 Acidosis; I16.1 Hypertensive emergency; N17.9 Acute kidney failure, unspecified; N18.9 Chronic kidney disease, unspecified; E87.5 Hyperkalemia
CPT/HCPCS: 36415; 71045; 76770; 80048; 80053; 80074; 80076; 81001; 82570; 82962; 83735; 84165; 84300; 85025; 85610; 86021; 86038; 86160; 86225; 89050; 93005; G0378; J1644; J7030

== ENCOUNTER 2020-05-06 13:06 | Emergency (ER) | payer MEDICARE ==
[2020-05-06] MEDS ORDERED: cloNIDine 0.2 MG TAB PO ONE (13:57)
--- NOTE | 2020-05-06 14:13 | Emergency Department Report ---
<LEXI CANDELARIO - Last Filed: 05/06/20 17:18> ED General Adult HPI - General Chief complaint: Allergic Reaction Stated complaint: ITCHING FROM MEDICATION Time Seen by Provider: 05/06/20 13:51 Source: patient Mode of arrival: Ambulatory Limitations: No Limitations - History of Present Illness Initial comments: 65-year-old -[place] male presents to the emergency room reporting that he has been itching since he was discharged here from the hospital on 04/26/2020. Patient was inpatient and was noted to have acute on chronic kidney disease hypertension. Patient states that the medications he was discharged home with carvedilol 6.25 mg twice a day, nifedipine 90 mg p.o. every 12 and hydralazine 50 mg p.o. every 8 hours. Patient reports he has not followed up with his primary care provider and has an appointment on Friday. Patient denies any chest pain shortness of breathing or headache. Patient denies any difficulty urinating any hematuria and no dizziness. Onset/Timin -: days(s) Quality: other (Itching) Consistency: constant Associated Symptoms: denies other symptoms - Related Data Previous Rx's Medication Instructions Recorded Last Taken Type NIFEdipine XL [Procardia Xl] 90 mg PO Q12HR #60 tablet 04/26/20 Unknown Rx carvediloL [Coreg] 6.25 mg PO BID #60 tablet 04/26/20 Unknown Rx Furosemide [Lasix TAB] 60 mg PO BID #60 tablet 05/07/20 Unknown Rx Allergies Allergy/AdvReac Type Severity Reaction Status Date / Time No Known Allergies Allergy Unverified 04/20/20 22:48 ED Review of Systems Comment: All other systems reviewed and negative ED Past Medical Hx - Past Medical History Previous Medical History?: Yes Hx Hypertension: Yes Hx Liver Disease: No Hx Renal Disease: No - Social History Smoking Status: Never Smoker Substance Use Type: None - Medications Home Medications: Home Medications Medication Instructions Recorded Confirmed Last Taken Type NIFEdipine XL [Procardia Xl] 90 mg PO Q12HR #60 tablet 04/26/20 Unknown Rx carvediloL [Coreg] 6.25 mg PO BID #60 tablet 04/26/20 Unknown Rx Furosemide [Lasix TAB] 60 mg PO BID #60 tablet 05/07/20 Unknown Rx ED Physical Exam - General Limitations: No Limitations General appearance: alert - Head Head exam: Present: atraumatic, normocephalic - Eye Eye exam: Present: normal appearance - ENT ENT exam: Present: mucous membranes moist - Neck Neck exam: Present: normal inspection - Respiratory Respiratory exam: Present: normal lung sounds bilaterally. Absent: respiratory distress - Cardiovascular Cardiovascular Exam: Present: regular rate, normal rhythm. Absent: systolic murmur, diastolic murmur, rubs, gallop - GI/Abdominal GI/Abdominal exam: Present: soft, normal bowel sounds - Rectal Rectal exam: Present: deferred - Extremities Exam Extremities exam: Present: normal inspection - Back Exam Back exam: Present: normal inspection - Neurological Exam Neurological exam: Present: alert, oriented X3, normal gait - Psychiatric Psychiatric exam: Present: normal affect, normal mood - Skin Skin exam: Present: warm, dry, intact, normal color. Absent: rash ED Medical Decision Making - Lab Data Result diagrams: 05/06/20 14:00 - Medical Decision Making 65-year-old -[place] male presents to the emergency room reporting that he has been itching since he was discharged here from the hospital on 04/26/2020. Patient was inpatient and was noted to have acute on chronic kidney disease hypertension. Patient states that the medications he was discharged home with carvedilol 6.25 mg twice a day, nifedipine 90 mg p.o. every 12 and hydralazine 50 mg p.o. every 8 hours. Patient reports he has not followed up with his primary care provider and has an appointment on Friday. Patient denies any chest pain shortness of breathing or headache. Patient denies any difficulty urinating any hematuria and no dizziness. Discussed case with Dr. Leong will place an INT give clonidine 0.2 mg p.o. Discussed with patient he need to stop the hydralazine start clonidine 0.1 mg 3 times daily and to keep his appointment with his primary care provider on Friday for reevaluation. ED Disposition Clinical Impression: Uncontrolled hypertension, Adverse drug reaction, Noncompliance with medication regimen, Chronic renal insufficiency, Hyperkalemia, Generalized pruritus Disposition: [id number] TO HOME OR SELFCARE Condition: Stable Instructions: Hypertension (ED), Hyperkalemia (ED), Chronic Kidney Disease (ED), Adverse Drug Reaction (ED), Furosemide (By mouth), How to Take a Blood Pressure (ED) Additional Instructions: It is unclear whether you are allergic to hydralazine or nifedipine but you have not had any reaction to the nifedipine while in the ED. We recommend he discontinue hydralazine. Take the nifedipine, carvedilol and we were adding Lasix 60 mg twice a day. It is very important that you follow-up with aprimary care doctor and a kidney specialist. The kidney specialist recommends that you call the office on Friday to schedule follow-up for this week. Lasix is a water pill and will cause you to urinate which can lower your potassium level. Your potassium level will need to be rechecked to determine if you require potassium supplementation daily. Your potassium was actually elevated here in the emergency department but we were able to get your values down to normal range prior to discharge. Buy a blood pressure cuff to monitor your blood pressure at home and record these values several times a day. Present this to your doctor for follow-up so they may perform medication adjustment as needed. Return if symptoms worsen as indicated by your discharge instructions. Prescriptions: Furosemide [Lasix TAB] 60 mg PO BID #60 tablet Referrals: ROYAL COOLEY MD [Staff Physician] - 3-5 Days (Kidney doctor) PRIMARY MD TAVARES [Primary Care Provider] - 3-5 Days (Dr Colon) <EILU COLLIER - Last Filed: 05/07/20 02:58> ED Review of Systems ROS: Stated complaint: ITCHING FROM MEDICATION Other details as noted in HPI ED Course Vital Signs 05/06/20 05/06/20 05/06/20 13:13 14:16 16:00 Temperature Pulse Rate 74 73 72 Pulse Rate [ Bilateral Throughout] Respiratory 18 16 Rate Respiratory Rate [Bilateral Throughout] Blood Pressure 250/142 Blood Pressure 238/140 233/143 [Right] O2 Sat by Pulse 98 98 Oximetry 05/06/20 05/06/20 05/06/20 18:00 20:00 20:45 Temperature Pulse Rate 62 68 Pulse Rate [ 77 Bilateral Throughout] Respiratory 16 16 Rate Respiratory 20 Rate [Bilateral Throughout] Blood Pressure Blood Pressure 228/142 197/108 [Right] O2 Sat by Pulse 99 98 Oximetry 05/06/20 05/06/20 05/06/20 20:49 21:00 21:30 Temperature Pulse Rate 71 68 65 Pulse Rate [ Bilateral Throughout] Respiratory 16 16 Rate Respiratory Rate [Bilateral Throughout] Blood Pressure 202/112 Blood Pressure 198/110 178/106 [Right] O2 Sat by Pulse 100 98 Oximetry 05/06/20 05/06/20 05/07/20 22:00 23:10 00:00 Temperature Pulse Rate 66 78 78 Pulse Rate [ Bilateral Throughout] Respiratory 13 11 L 14 Rate Respiratory Rate [Bilateral Throughout] Blood Pressure 184/107 196/103 180/105 Blood Pressure 183/105 [Right] O2 Sat by Pulse 98 98 100 Oximetry 05/07/20 05/07/20 05/07/20 01:00 02:00 02:02 Temperature 98.1 F Pulse Rate 77 80 73 Pulse Rate [ Bilateral Throughout] Respiratory 10 L 13 16 Rate Respiratory Rate [Bilateral Throughout] Blood Pressure 180/105 148/83 Blood Pressure 153/81 [Right] O2 Sat by Pulse 99 96 100 Oximetry ED Medical Decision Making - Lab Data Result diagrams: 05/07/20 01:55 - Medical Decision Making Patient has been managed by midlevel Hilda Candelario with consultation of Dr Lion during 7 hour ED stay prior to my involvement. Last plan discussed was to discontinue hydralazine (start clonidine instead at discharge) and provide IV labetalol however, upon heart rate recheck it was in the 50s and therefore labetalol was contraindicated. Dr Lion had left the department at shift change therefore Arcadio brought the case to my attention and asked that I assume care of the patient for intractable hypertension. I assessed patient and reviewed current and previous medical record. Patient had a recent admission for uncontrolled hypertension and newly diagnosed renal insufficiency and was started on blood pressure medications for the first time. Patient has been taking his medications without incidence for the past 4 to 5 days then suddenly developed generalized pruritus without rash. Patient denies airway issues or shortness of breath. Patient also denies symptoms of uncontrolled blood pressure denies headache, chest pain, shortness of breath, or change in urine output. Patient states he only came here due to pruritus. Patient took h is carvedilol as scheduled (including his am dose today) but did not take his hydralazine or nifedipine doses last night or this morning therefore at time of ER presentation he has missed 2 doses of these medications. Itching has since resolved. Prior to my evaluation patient has been in the ER for several hours and has received clonidine 0.2mg and nifedipine ER 90 mg without improvement in blood pressure. Labs reviewed and patient has chronic renal sufficiency which is unchanged and does have current hyperkalemia. No meds given for hyperkalemia per my evaluation. Ordered albuterol 10 mg, Kayexalate 30 g, D50 25 g, and regular insulin 6 units, 1 amp of sodium bicarb and will repeat potassium levels. Patient's blood pressure improving but still elevated with heart rate currently in the 80s. Labetalol 10 mg IV ordered. Patient is supposed to follow-up with his PMD and is expecting a call from ginger farmer regarding outpatient follow-up. As per medical record patient received clonidine and amlodipine during initial ER evaluation. During hospital admission he received nifedipine early on and throughout his admission without incidence. The last 2 days of admission hydralazine was added to his regiment and carvedilol was added the last day of admission. Patient did not have allergic reaction to any of these meds while in the hospital. Blood pressure improving status post dose of labetalol. Repeat potassium 5.5 after receiving meds I discussed case with on-call ginger farmer affiliated with Dr. Cooley at 11:40 PM. I discussed case with Dr. Tapia who recommends IV Lasix 80 mg now and to discharge on Lasix 60 mg twice daily. Recommend to continue carvedilol and nif edipine and to follow-up in the office within 1 week. Also recommends monitoring of his blood pressure at home Patient had a urine output of 800 mL's after Lasix. Repeat potassium shows normal level. Patient also provided Kayexalate and had 1 bowel movement in the ED. Patient is probably at risk of hypokalemia due with lasix 60mg bid recommended. outpt follow up will be advised for bp management and reassessment of electrolytes. I am hesitant to provided po kcl at this time at d/c given hy perkalemic presentation. pmd f/u also advised. bp 153/81 prior to d/c. K 4.1 Critical care attestation.: If time is entered above; I have spent that time in minutes in the direct care of this critically ill patient, excluding procedure time. ED Disposition Is pt being admited?: No Does the pt Need Aspirin: No Time of Disposition: 02:58
[2020-05-06 14:49] LABS: Calcium 10.2 mg/dL (8.4-10.2)
[2020-05-06] MEDS ORDERED: NIFEdipine XL 90 MG TAB PO ONE (16:00)
[2020-05-06] MEDS ORDERED: SODIUM POLYSTYRENE 15 GM/60 ML ORAL LIQD PO ONE (20:29)
[2020-05-06] MEDS ORDERED: ALBUTEROL 2.5 MG/3 ML NEBU IH ONE (20:29)
[2020-05-06] MEDS ORDERED: DEXTROSE 50% IN WATER (25GM) 50 ML VIAL IV ONE (20:29)
[2020-05-06] MEDS ORDERED: DEXTROSE 50% IN WATER (25GM) 50 ML SYRINGE IV ONE (20:30)
[2020-05-06] MEDS ORDERED: INSULIN REGULAR, HUMAN 100 UNIT/ML 3ML VIAL IV ONE (20:30)
--- NOTE | 2020-05-06 20:36 | Emergency Department Report ---
Blank Doc - Documentation Documentation: Patient has been managed by midlevel Hilda Ervin with consultation of Dr Gigi bhardwaj during 7 hour ED stay prior to my involvement. Last plan discussed was to discontinue hydralazine (start clonidine instead at discharge) and provide IV labetalol however, upon heart rate recheck it was in the 50s and therefore labetalol was contraindicated. Dr Lion had left the department at shift change therefore Arcadio brought the case to my attention and asked that I assume care of the patient for intractable hypertension. I assessed patient and reviewed current and previous medical record. Patient had a recent admission for uncontrolled hypertension and newly diagnosed renal insufficiency and was started on blood pressure medications for the first time. Patient has been taking his medications without incidence for the past 4 to 5 days then suddenly developed generalized pruritus without rash. Patient denies airway issues or shortness of breath. Patient also denies symptoms of uncontrolled blood pressure denies headache, chest pain, shortness of breath, or change in urine output. Patient states he only came here due to pruritus. Patient took his carvedilol as scheduled (including his am dose today) but did not take his hydralazine or nifedipine doses last night or this morning therefore at time of ER presentation he has missed 2 doses of these medications. Itching has since resolved. Prior to my evaluation patient has been in the ER for several hours and has received clonidine 0.2mg and nifedipine ER 90 mg without improvement in blood pressure. Labs reviewed and patient has chronic renal sufficiency which is unchanged and does have current hyperkalemia. No meds given for hyperkalemia per my evaluation. Ordered albuterol 10 mg, Kayexalate 30 g, D50 25 g, and regular insulin 6 units, 1 amp of sodium bicarb and will repeat potassium levels. Patient's blood pressure improving but still elevated with heart rate currently in the 80s. Labetalol 10 mg IV ordered. Patient is supposed to follow-up with his PMD and is expecting a call from curam developer regarding outpatient follow-up. As per medical record patient received clonidine and amlodipine during initial ER evaluation. During hospital admission he received nifedipine early on and throughout his admission without incidence. The last 2 days of admission hydralazine was added to his regiment and carvedilol was added the last day of admission. Patient did not have allergic reaction to any of these meds while in the hospital. Blood pressure improving status post dose of labetalol. Repeat potassium 5.5 after receiving meds I discussed case with on-call curam developer affiliated with Dr. Cooley at 11:40 PM. I discussed case with Dr. Tapia who recommends IV Lasix 80 mg now and to discharge on Lasix 60 mg twice daily. Recommend to continue carvedilol and nifedipine and to follow-up in the office within 1 week. Also recommends monitoring of his blood pressure at home Patient had a urine output of 800 mL's after Lasix. Repeat potassium shows normal level. Patient also provided Kayexalate and had 1 bowel movement in the ED. Patient is probably at risk of hypokalemia due with lasix 60mg bid recommended. outpt follow up will be advised for bp management and reassessment of electrolytes. I am hesitant to provided po kcl at this time at d/c given hyperkalemic presentation. pmd f/u also advised. bp 153/81 prior to d/c. K 4.1 This note copied on to midlevel chart.
[2020-05-06] MEDS ORDERED: SODIUM BICARB 8.4% 50 MEQ/50 ML SYRINGE IV ONE (20:37)
[2020-05-06] MEDS ORDERED: INSULIN REGULAR, HUMAN 100 UNITS/1 ML ONE (21:00)
[2020-05-06] MEDS ORDERED: FUROSEMIDE 40 MG/4 ML INJ IV ONE (23:37)
[2020-05-07 04:00] VITALS: BP 173/94
== END 2020-05-07 04:02 | disposition home or self-care (01) ==
LOC: ED 13:06
DX: L29.9 Pruritus, unspecified (principal); T44.7X5A Adverse effect of beta-adrenoreceptor antagonists, initial encounter; T46.1X5A Adverse effect of calcium-channel blockers, initial encounter; T46.5X5A Adverse effect of other antihypertensive drugs, initial encounter; I12.9 Hypertensive chronic kidney disease with stage 1 through stage 4 chronic kidney disease, or unspecified chronic kidney disease; N18.9 Chronic kidney disease, unspecified; E87.5 Hyperkalemia; Z91.14 Patient's other noncompliance with medication regimen; Z79.899 Other long term (current) drug therapy; Y92.89 Other specified places as the place of occurrence of the external cause
CPT/HCPCS: 36415; 80048; 84132; 94640; 96374; 96375; 99284; J1940; 94644; J1815